=== PATIENT | female | born 1960 | race Caucasian/White ===

== ENCOUNTER → 2017-07-22 | Outpatient (CLI) | payer MEDICARE ==
[2016-07-21 14:29] VITALS: BMI 43.2
[~2017-07-22] MED LIST: ACE500 PO; ALB17R INH; ALB6.7R INH; ALBU8HFA INH; ASPI-1064 PO; AUG500 PO; AZI250 PO; AZIT-1 PO; AZIT500T47 PO; AZM25R INH; BACDS PO; BECR40 INH; BETA15CR37 TP; BUDE10.2 INH; BUPR-129 PO; CEFU250T11 PO; CEFU500T10 PO; CEP500 PO; CEPH500C24 PO; CEPH500T7 PO; CHLO1CAP45 PO; CIP500 PO; CITA-156 PO; CITA-157 PO; CPAP AT NIGHT; CYCL10TA29 PO; D ME PO; DIPH-740 PO; DOXY-179 PO; DUONEB INH; DUONEB NEB; FLUT1DIS27 IH; FLUT1DIS28 IH; GUAI237S60 PO; HYDR-3087 PO; HYDR-385 PO; IBU600 PO; IBU800 PO; IBUP600T22 PO; IBUP800T37 PO; IPRA3AMP36 IH; KET10 PO; LEV25 PO; LEVO100T95 PO; LOR5 PO; LOR5/325 PO; MONT10TA PO; NAP550 PO; NAPR-1043 PO; NAPR220C12 PO; OMEP-153 PO; ONDA-2 PO; OXYC-373 PO; OXYC-865 PO; OXYC5TAB38 PO; OXYGEN INH; OXYGENHOME INH; PANT40TA65 PO; PER PO; PHEN120S16 PO; PRAV20TA65 PO; PRE20 PO; PRED-1 PO; PRED20TA6 PO; PRIM50TA PO; PROP10TA58 PO; PROTONIX; SIMV-49 PO; TIO18R INH; TRAM-420 PO; ZPACK; [UNRECOGNIZED DRUG - CODE] PO
[2017-07-22 14:03] LABS: LDL CHOLESTEROL 68 mg/dl
== END ==
LOC: LAB 13:32
PROVIDERS: ATTEND Family Medicine
DX: E78.00 Pure hypercholesterolemia, unspecified (principal); E03.9 Hypothyroidism, unspecified
CPT/HCPCS: 36415; 82040; 82247; 82310; 82374; 82435; 82465; 82565; 82947; 83718; 84075; 84132; 84155; 84295; 84443; 84450; 84460; 84478; 84520

== ENCOUNTER 2017-08-14 20:10 | Emergency (ER) | payer MEDICARE, MEDICAID ==
[2016-07-21 14:29] VITALS: Ht 157.5 cm; Wt 110.2 kg
[~2017-08-14] VITALS: Ht 157.5 cm; Wt 110.2 kg
--- NOTE | 2017-08-14 20:15 | ER Report ---
History and Physical Time Seen By MD: 20:15 HPI/ROS CHIEF COMPLAINT: Difficulty breathing HISTORY OF PRESENT ILLNESS: 56-year-old female with a history of O2 dependent COPD on 2-5 L, who continues to smoke. Presents ambulatory to the ER complaining of cough and increasing shortness of breath for 10 days. She notes productive cough of yellow sputum. She notes some low-grade fevers. She describes body aches. She denies exposure to ill contacts. She states she's completely recovered from her visit in early May of last year where she was treated with Zithromax and prednisone. She notes no leg swelling or calf pain. She denies chest pain. Patient states her nebulizer treatments are not helping. REVIEW OF SYSTEMS: Respiratory: As above Cardiovascular: No chest pain, no palpitations. Gastrointestinal: No vomiting, no abdominal pain. Musculoskeletal: As above Allergies: Coded Allergies: fluoxetine (Unverified Allergy, Intermediate, HIVES, 08/14/17) acetaminophen (Verified Allergy, Mild, NAUSEA/VOMITING, 08/14/17) codeine (Verified Allergy, Mild, NAUSEA/VOMITING, 08/14/17) shellfish derived (Unverified Allergy, Unknown, 08/14/17) Home Meds Active Scripts Prednisone (PREDNISONE) 20 Mg Tablet, 40 MG PO QDAY, #12 2 by mouth daily 4 days then 1 by mouth daily 4 days Prov:FROYLANVICTOR MANUEL Zuniga DO 08/14/17 Cefuroxime Axetil (CEFUROXIME) 500 Mg Tablet, 500 MG PO BID for infection, #14 TAB Prov:VICTOR MANUEL GALEANO DO 08/14/17 Oxygen (OXYGEN) Inha, 5 L INH QHS, #5 L With CPAP. Prov:ARIE HORTON MD 07/21/16 Reported Medications Lisinopril (LISINOPRIL) 40 Mg Tablet, 40 MG PO QDAY, TAB 08/14/17 Levothyroxine Sodium (SYNTHROID) 112 Mcg Tablet, 112 MCG PO QDAY, TAB 08/14/17 Fluticasone/Salmeterol (ADVAIR 250-50 DISKUS) 1 Each Disk.w.dev, 1 EACH IH 1-2XD 12/26/16 Montelukast Sodium (SINGULAIR) 10 Mg Tablet, 1 TAB PO QDAY, TAB 10/07/15 Tiotropium [place] (SPIRIVA) 18 Mcg/Cap Inh, 18 MCG INH QDAY Y for CONGESTION, INH 08/26/15 Citalopram Hydrobromide (CELEXA) 40 Mg Tablet, 40 MG PO QDAY, #5 TAB 0 Refills TAKE 1 TABLET BY MOUTH EVERY DAY 05/23/13 Simvastatin (SIMVASTATIN) 20 Mg Tablet, 40 MG PO HS, TAB 0 Refills 05/23/13 Pantoprazole Sodium (PANTOPRAZOLE SODIUM) 40 Mg Tablet.dr, 40 MG PO QDAY, TAB.SR 0 Refills 05/23/13 Albuterol/Ipratropium (Duoneb) 3 Ml Soln, 3 ML NEB BID, 0 Refills 05/26/12 Discontinued Reported Medications Cephalexin 500 Mg Tab (KEFLEX 500 MG TAB) 500 Mg Tablet, 500 MG PO Q6H, #12 TAB 03/01/17 Hydrocodone Bit/Acetaminophen (HYDROCODON-ACETAMINOPHEN 5-325) 1 Each Tablet, 1- 2 EACH PO Q4-6H Y for PAIN, #30 TAB 03/01/17 Levothyroxine Sodium (SYNTHROID) 100 Mcg Tablet, 100 MCG PO QDAY 02/08/16 Discontinued Scripts Azithromycin (ZITHROMAX) 250 Mg Tablet, 0 PO QDAY, #6 TAB Prov:KIMI EASLEY MD 06/01/17 Prednisone 10 Mg Tab (PREDNISONE 10 MG TAB) 10 Mg Tablet, 50 MG PO QDAY, #47 TAB 50 mg by mouth daily for 3 days then 40 mg by mouth daily for 3 days then 30 mg by mouth daily for 3 days then 20 mg by mouth daily for 3 days then 10 mg by mouth daily for 3 days then 5 mg by mouth daily for 3 days. Prov:KIMI EASLEY MD 06/01/17 Past Medical/Surgical History Parkinsons, migraines, "non-cardiac" angina, hypercholesterolemia, asthma, COPD , GERD, rotator cuff strain/tendonitis, "arthritis", "vision problems", " thyroid disorder", depression 2013 hysterectomy-uterine fibroids, 03/2012-EGD with dilation for dysphagia, 1983 bilateral salpingectomy, 01/2011 left and right ankle fracture, L4-L5 deterioration, 11/2012 subconjunctival hemorrhage, hx of pneumo, 2008 appendectomy, 2013 colonoscopy, 1983 tubal ligation Reviewed Nurses Notes: Yes Old Medical Records Reviewed: Yes Hx Smoking: Yes (SMOKES 1/2 TO 3/4 PPD FOR 44 YEARS. CHEWED TOBACCO FOR 1 YEAR) Smoking Status: Current: Every Day Smoker, Heavy Tobacco Smoker Exposure to Second Hand Smoke?: Yes Hx Substance Use Disorder: No Hx Alcohol Use: Yes Constitutional Vital Sign - Last 24 Hours 08/14/17 08/14/17 08/14/17 08/14/17 20:15 20:16 20:20 20:25 Temp 98.2 Pulse 97 ??? Resp 28 B/P (MAP) 136/87 131/88 (102) 134/73 (93) Pulse Ox 97 100 O2 Delivery Nasal Cannula 08/14/17 08/14/17 08/14/17 08/14/17 20:30 20:30 20:36 20:40 Pulse 74 91 77 Resp 16 18 B/P (MAP) 121/77 (92) Pulse Ox 96 96 O2 Delivery Nasal Cannula O2 Flow Rate 2.0 08/14/17 08/14/17 08/14/17 08/14/17 20:55 20:56 21:00 21:10 Pulse ??? 75 B/P (MAP) 115/64 (81) 113/77 (89) Pulse Ox 94 08/14/17 08/14/17 21:20 21:25 Pulse 39 B/P (MAP) 121/79 (93) Pulse Ox 96 Physical Exam Vital signs stable, mild elevation of the respirator rate 28. Pulse ox normal at her baseline 2 L General Appearance: The patient is alert, has no immediate need for airway protection and no current signs of toxicity. Slightly pale appearing, skin warm and dry HEENT: Pupils equal and round no injection. TMs normal, oropharynx with mild erythema, no exudate or petechiae Respiratory: Chest is non tender, diffuse expiratory wheezing, no Rales or rhonchi noted Cardiac: regular rate and rhythm Gastrointestinal: Abdomen is soft and non tender, no masses, bowel sounds normal. Musculoskeletal: Neck: Neck is supple and non tender. Extremities have full range of motion and are non tender. No edema, no calf tenderness Skin: No rashes or lesions. DIFFERENTIAL DIAGNOSIS: After history and physical exam differential diagnosis was considered for shortness of breath including but not limited to pulmonary infectious process, COPD, asthma, pulmonary embolus and congestive heart failure. Medical Decision Making Data Points Laboratory Hematology Test 08/14/17 20:22 Influenza Virus Type A (PCR) Negative (NEGATIVE) Influenza Virus Type B (PCR) Negative (NEGATIVE) Chemistry Test 08/14/17 20:22 Influenza Virus Type A (PCR) Negative (NEGATIVE) Influenza Virus Type B (PCR) Negative (NEGATIVE) EKG/Imaging Imaging X-ray: Chest x-ray, 2 views was obtained. I viewed the images myself on the PACS system. My interpretation of the images is: Infiltrate, no effusion, normal mediastinum., Comparison to previous chest x-ray dated 06/01/17, no significant change. The radiologist interpretation had no clinically significant variation from this interpretation. X-ray: Right hand, 3 views was obtained. I viewed the images myself on the PACS system. My interpretation of the images is: No fracture no dislocation or malalignment, there is a healed appearance to suggest previous fracture of the midshaft of the 5th metacarpal. The radiologist interpretation had no clinically significant variation from this interpretation. ED Course/Re-evaluation ED Course Patient was admitted to an examination room. H&P was done. The differential diagnoses was considered. On clinical examination. Patient has a COPD exacerbation. She's had a cough and shortness of breath for 10 days. Is become much worse over the last 2. She notes production of yellow sputum. She is afebrile on arrival. Her pulse ox is normal. Her baseline O2. Her other vital signs are unremarkable except for mild tachypnea. She is treated with prednisone 40 mg by mouth, DuoNeb 2. A rapid influenza is sent off which is negative. Patient be treated with Ceftin antibiotic and a prednisone taper. She is advised to continue on all of her regular medications and follow-up with primary care if unimproved in 3-5 days. Decision to Disposition Date: Aug 14, 2017 Decision to Disposition Time: 20:31 Depart Departure Latest Vital Signs Vital Signs Date Time Temp Pulse Resp B/P (MAP) Pulse Ox O2 Delivery O2 Flow Rate FiO2 08/14/17 21:25 39 96 08/14/17 21:20 121/79 (93) 08/14/17 20:36 18 08/14/17 20:30 Nasal Cannula 2.0 08/14/17 20:15 98.2 Impression: Primary Impression: COPD with exacerbation Additional Impression: Acute bronchitis Condition: Improved Disposition: HOME OR SELF-CARE Referrals: BROOK TEJEDA DO (PCP) New Scripts Prednisone (PREDNISONE) 20 Mg Tablet 40 MG PO QDAY, #12 2 by mouth daily 4 days then 1 by mouth daily 4 days Prov: VICTOR MANUEL GALEANO DO 08/14/17 Cefuroxime Axetil (CEFUROXIME) 500 Mg Tablet 500 MG PO BID for infection, #14 TAB Prov: VICTOR MANUEL GALEANO DO 08/14/17 Patient Instructions: Acute Bronchitis (ED), COPD (Chronic Obstructive Pulmonary Disease) (ED) Problem Qualifiers Additional Impression: Acute bronchitis Bronchitis organism: unspecified organism Qualified Codes: J20.9 - Acute bronchitis, unspecified VICTOR MANUEL GALEANO DO Aug 14, 2017 20:15
[2017-08-14] MEDS ORDERED: LISI-374 PO (20:21)
[2017-08-14] MEDS ORDERED: LEVO112T44 PO (20:21)
[2017-08-14] MEDS ORDERED: predniSONE 20 MG TAB PO ONE (20:25)
[2017-08-14] MEDS ORDERED: ALBUTEROL/IPRATROPIUM 3 ML NEB NEB ONE (20:25)
[2017-08-14] MEDS ORDERED: PRED20TA6 PO (20:33)
[2017-08-14] MEDS ORDERED: CEFU500T10 PO (20:33)
[2017-08-14] MEDS ORDERED: CEFDINIR 300 MG CAP PO ONE (21:15)
[2017-08-14 21:20] VITALS: BP 121/79
--- NOTE | 2017-08-14 21:23 | RADIOLOGY IMAGING REPORT ---
FACILITY: [facility] PATIENT NAME: Jesús Major : 1960 MR: [id number] V: [id number] EXAM DATE: ORDERING PHYSICIAN: VICTOR MANUEL GALEANO TECHNOLOGIST: Location: [facility] - [place] Patient: Jesús Major : 1960 Visit/Account:[id number] Date of Sevice: 08/14/2017 EXAMINATION: Chest radiographs 2 views HISTORY: COPD, difficulty breathing. COMPARISON: 06/01/2017 FINDINGS: PA and lateral views of the chest are submitted. Lines/tubes: Postsurgical changes in the left upper lobe with surgical clips and several irene. Lungs/pleura: No focal consolidation or pleural effusion. Pulmonary vascularity is within normal martinez its. No evidence of pneumothorax. Heart: Negative. Mediastinum: Negative. Bony structures/body wall: Multilevel facet hypertrophy in the cervical spine. IMPRESSION: No radiographic evidence of acute cardiopulmonary disease. Report Dictated By: Daniel Garrison MD at 08/14/2017 9:15 PM Report E-Signed By: Daniel Garrison MD at 08/14/2017 9:18 PM WSN:[id number]
--- NOTE | 2017-08-14 21:26 | RADIOLOGY IMAGING REPORT ---
FACILITY: [facility] - [place] PATIENT NAME: Jesús Major : 1960 MR: [id number] V: [id number] EXAM DATE: ORDERING PHYSICIAN: VICTOR MANUEL GALEANO TECHNOLOGIST: [place] [facility] [place]: Jesús Major : 1960 Visit/Account:[id number] Date of Sevice: 08/14/2017 EXAMINATION: Right hand radiographs 3 views HISTORY: Right medial hand pain. COMPARISON: None. FINDINGS: PA, lateral and oblique views of the right hand are obtained. Bones: No acute fracture. Joint spaces: No dislocation. Dorsal osteophyte at the third DIP joint. Hardware: None. Alignment: Normal. Soft tissues: Negative. IMPRESSION: No acute right hand fracture. Report Dictated By: Daniel Garrison MD at 08/14/2017 9:18 PM Report E-Signed By: Daniel Garrison MD at 08/14/2017 9:22 PM WSN:[id number]
== END 2017-08-14 21:36 | disposition home or self-care (01) ==
LOC: ER 20:24
DX: J44.1 Chronic obstructive pulmonary disease with (acute) exacerbation (principal); J20.9 Acute bronchitis, unspecified; F17.210 Nicotine dependence, cigarettes, uncomplicated
CPT/HCPCS: 71046; 73130; 87502; 94640; 99283; A9270; J7512; J7620

== ENCOUNTER 2017-09-04 00:27 | Inpatient (IN) | payer MEDICARE, MEDICAID ==
[2016-07-21 14:29] VITALS: Ht 157.5 cm; Wt 110.7 kg
[~2017-09-04] VITALS: Ht 157.5 cm; Wt 110.7 kg
[2017-09-04] VITALS (15 sets, daily range): BP systolic 116–149; BP diastolic 75–108
[~2017-09-04 00:27] MED LIST changes: +LEVO112T44 PO; +LISI-374 PO; +LOSA100T67 PO; +RANI-320 PO
[2017-09-04] MEDS ORDERED: PROPOFOL EMUL(*) 10MG/ML 20 ML 40 ML ONE (07:53)
[2017-09-04] MEDS: NORMOSOL R SOLN(*) 1000 ML BAG 1,000 ML IV PRN ×2 (08:08→11:25)
[2017-09-04] MEDS ORDERED: LIDOCAINE/SOD BICARB 8.4% SYR ID ONE (08:45)
[2017-09-04] MEDS ORDERED: MIDAZOLAM 2 MG/2 ML VIAL IVP ONE (08:45)
[2017-09-04] MEDS ORDERED: GLYCOPYRROLATE 0.2 MG/ML SDV ONE (11:02)
[2017-09-04] MEDS ORDERED: SUCCINYLCHOL CHL 200MG/10ML VL ONE (11:05)
[2017-09-04] MEDS ORDERED: ALBUTEROL/IPRATROPIUM 3 ML NEB ONE ×2 (11:19→15:59)
--- NOTE | 2017-09-04 11:53 | Miscellaneous Provider Note ---
Miscellaneous Provider Note Note During the endoscopy, the patient became hypoxic and so the scope was removed and attempts at ventilating her with a BVM were not successful at improving her oxygenation. She became bradycardic and then went into asystole (confirmed with no pulse) and so chest compressions were initiated and she was rapidly intubated by Dr. Durand. She quickly resumed a regular, perfusing cardiac rhythm and chest compressions were only required for about 15 seconds before a perfusing rhythm was reinitiated. We then waited for her to wake up and then after she was awake, her SaO2 was 97%, she was moving air without problems, her ETCO2 was in the 50s, and her HR was NSR in the 90s with a SBP of 128. She was then extubated and moved to the PACU in stable condition. Hospitalist contacted , she will be admitted to the ICU for observation and telemetry. CULLEN LESLIE MD Sep 04, 2017 11:53
[2017-09-04] MEDS ORDERED: DEXAMETHASONE SOD PHOS 10MG/ML ONE (12:10)
[2017-09-04] MEDS ORDERED: NORMOSOL R SOLN(*) 1000 ML BAG 1,000 ML IV PRN (14:15)
--- NOTE | 2017-09-04 14:31 | EKG ---
FACILITY: [facility] PATIENT NAME: LUIS CARLOS YAÑEZ : [id number] MR: [id number] V: [id number] EXAM DATE: ORDERING PHYSICIAN: JACQUIE HORTON TECHNOLOGIST: SHERI Love Reason : POST ARREST Blood Pressure : / mmHG Vent. Rate : 074 BPM Atrial Rate : 074 BPM P-R Int : 204 ms QRS Dur : 080 ms QT Int : 388 ms P-R-T Axes : 052 048 073 degrees QTc Int : 430 ms Sinus rhythm Possible left atrial enlargement Poor R wave progression anteriorly Nonspecific ST findings inferolateral leads Confirmed by JACQUIE HORTON ([id number]) on 09/05/2017 5:44:02 AM Referred By: SOL Confirmed By:JACQUIE HORTON
[2017-09-04 14:43] LABS: PLATELET COUNT, AUTOMATED 143 K/uL (150-450)
--- NOTE | 2017-09-04 14:54 | History & Physical ---
History of Present Illness Chief Complaint Arrest during endoscopy History of Present Illness 53yo female with PMHx significant for COPD, VAISHNAVI, depression, hypothyroidism. She was having EGD with Dr. Leslie earlier today for dysphagia/esophageal dilation when she was noted to having a coughing episode followed by worsening hypoxia. Dr. Durand noted he was unable to adequately ventilate her and her hypoxia worsened to the point she needed intubation. During this time she was noted to become bradycardic and eventually asystole. A Code Blue was called. She had a few chest compressions and was successfully intubated. Her rhythm returned/stabilized and she was oxygenating easily. She has been stable with respect to her cardiorespiratory status since. Prior to this episode, she reports she has tolerated anesthesia and procedures very well. She denies any problems with chest pain. She does admit to significant dyspnea on exertion. She has no known cardiac disease. She was recommended for admission. History Problems: (1) COPD with asthma Status: Chronic (2) Spontaneous pneumothorax Status: Resolved (3) DDD (degenerative disc disease) Status: Chronic (4) Depression Status: Chronic (5) Hyperlipidemia Status: Chronic (6) Hypothyroidism Status: Chronic (7) VAISHNAVI on CPAP Status: Chronic (8) Tremor of unknown origin Status: Chronic (9) Steatosis of liver Status: Chronic (10) Dysphagia Status: Chronic (11) GERD (gastroesophageal reflux disease) Status: Chronic (12) Pneumonia Status: Resolved (13) Hx of appendectomy Status: Resolved (14) Hx of tubal ligation Status: Resolved (15) History of lung surgery Status: Resolved (16) Status post laparoscopic assisted vaginal hysterectomy Status: Resolved Home Meds Active Scripts Ranitidine Hcl (RANITIDINE HCL) 300 Mg Tablet, 1 TAB PO QHS, #60 TAB 6 Refills Prov:CULLEN LESLIE MD 08/19/17 Oxygen (OXYGEN) Inha, 5 L INH QHS, #5 L With CPAP. Prov:ARIE HORTON MD 07/21/16 Reported Medications Oxygen (OXYGEN) Inha, 2-4 L INH, L day time use 09/04/17 Propranolol Hcl (PROPRANOLOL HCL) 10 Mg Tablet, 10 MG PO TID 08/28/17 Losartan Potassium (LOSARTAN POTASSIUM) 100 Mg Tablet, 100 MG PO QDAY 08/28/17 Levothyroxine Sodium (SYNTHROID) 112 Mcg Tablet, 112 MCG PO QDAY, TAB 08/14/17 Fluticasone/Salmeterol (ADVAIR 250-50 DISKUS) 1 Each Disk.w.dev, 1 EACH IH 1-2XD 12/26/16 Montelukast Sodium (SINGULAIR) 10 Mg Tablet, 1 TAB PO QDAY, TAB 10/07/15 Citalopram Hydrobromide (CELEXA) 40 Mg Tablet, 40 MG PO QDAY, #5 TAB 0 Refills TAKE 1 TABLET BY MOUTH EVERY DAY 05/23/13 Simvastatin (SIMVASTATIN) 20 Mg Tablet, 40 MG PO HS, TAB 0 Refills 05/23/13 Pantoprazole Sodium (PANTOPRAZOLE SODIUM) 40 Mg Tablet.dr, 40 MG PO QDAY, TAB.SR 0 Refills 05/23/13 Albuterol/Ipratropium (Duoneb) 3 Ml Soln, 3 ML NEB BID, 0 Refills 05/26/12 Discontinued Reported Medications Lisinopril (LISINOPRIL) 40 Mg Tablet, 40 MG PO QDAY, TAB 08/14/17 Tiotropium [place] (SPIRIVA) 18 Mcg/Cap Inh, 18 MCG INH QDAY Y for CONGESTION, INH 08/26/15 Discontinued Scripts Prednisone (PREDNISONE) 20 Mg Tablet, 40 MG PO QDAY, #12 2 by mouth daily 4 days then 1 by mouth daily 4 days Prov:FROYLANVICTOR MANUEL Zuniga DO 08/14/17 Cefuroxime Axetil (CEFUROXIME) 500 Mg Tablet, 500 MG PO BID for infection, #14 TAB Prov:VICTOR MANUEL GALEANO Efrain DO 08/14/17 Allergies: Coded Allergies: fluoxetine (Unverified Allergy, Intermediate, HIVES, 08/14/17) acetaminophen (Verified Allergy, Mild, NAUSEA/VOMITING, 08/14/17) codeine (Verified Allergy, Mild, NAUSEA/VOMITING, 08/14/17) shellfish derived (Unverified Allergy, Unknown, 08/14/17) Patient History: FH: bladder cancer BROTHER OR SISTER (cancer ) FH: breast cancer BROTHER OR SISTER FH: diabetes mellitus MOTHER, FH: throat cancer BROTHER OR SISTER Hx Smoking: Yes (SMOKES 1/2 TO 3/4 PPD FOR 44 YEARS. CHEWED TOBACCO FOR 1 YEAR) Smoking Status: Current: Every Day Smoker, Heavy Tobacco Smoker Exposure to Second Hand Smoke?: Yes Caffeine Intake: Coffee, Tea, Soda Caffeine/Cups Per Day: 5 cans of soda daily, occassional coffee Hx Alcohol Use: Yes Hx Substance Use Disorder: No Social Drug Use: Never Review of Systems Constitutional: No Fever, No Chills, No Night Sweats Cardiovascular: No Chest Pain, No Palpitations, No Orthostatic Hypotension Respiratory: Shortness of Breath Gastrointestinal: No Nausea, No Vomiting, Dysphagia, No Hematemesis, No Hematochezia, No Melena Genitourinary: No Dysuria, No Hematuria Musculoskeletal: Pain Psychiatric: Depression Exam Vital Signs Vital Signs Date Time Temp Pulse Resp B/P (MAP) Pulse Ox O2 Delivery O2 Flow Rate FiO2 09/04/17 13:38 93 Nasal Cannula 3.0 09/04/17 13:30 77 21 116/93 (101) 09/04/17 13:00 98.3 General Appearance: Alert, Awake, No Acute Distress Neuro: No Gross deficits Eyes: PERRLA ENT: Oropharynx Clear, Other (several ecchymoses on tongue) Neck: No Masses, Other (short thick) Cardiovascular: Regular Rate and Rhythm (distant tones/no murmur) Respiratory: Other (decreased breath sounds bilaterally few expiratory wheezes/ no rales) Chest: No Tenderness GI: Abd Soft and Non-Tender : No CVA Tenderness Lymph: No Adenopathy Extremities: Warm, Perfused Integumentary: Skin Intact without Lesion / Mass Psych: Alert & Oriented X3 Medical Decision Making Data Points Result Diagram: 09/04/17 1432 09/04/17 1432 Item Value Date Time Albumin 3.8 g/dl 09/04/17 1432 Total Protein 6.1 gm/dl L 09/04/17 1432 Alkaline Phosphatase 68 U/L 09/04/17 1432 Alanine Aminotransferase (ALT/SGPT) 87 U/L H 09/04/17 1432 Aspartate Amino Transf (AST/SGOT) 73 U/L H 09/04/17 1432 Total Bilirubin 1.1 mg/dl 09/04/17 1432 Magnesium Level 1.7 mg/dl 09/04/17 1432 Calcium Level 8.7 mg/dl 09/04/17 1432 EKG / Imaging EKG Interpretation Sinus rhythm with poor R wave progression anteriorly Assessment and Plan Problems: (1) Cardiorespiratory arrest Status: Acute Assessment & Plan: It sounds as if she may have had a respiratory event, possibly laryngospasm which led to the arrest. At present, she does appear to be stable. Will admit to the ICU for further monitoring an devaluation. She certainly does have some risk factors for cardiac etiology as well. Will check serial troponins. Will further evaluate/treat pending results. (2) Asystole Status: Acute (3) COPD with asthma Status: Chronic Assessment & Plan: Will continue her usual regimen with Duoneb, Advair, Singulair, O2. (4) Depression Status: Chronic Assessment & Plan: Continue Celexa. (5) Hypothyroidism Status: Chronic Assessment & Plan: Continue L-thyroxine. (6) GERD (gastroesophageal reflux disease) Status: Chronic Assessment & Plan: Continue the Protonix, Zantac. (7) VAISHNAVI on CPAP Status: Chronic Assessment & Plan: Continue CPAP/O2. Venous Thromboembolism Antithrombotics Is Pt On Any Antithrombotics?: No (Resuscitation earlier today) Exam Sepsis Risk: No Definite Risk JACQUIE HORTON MD Sep 04, 2017 14:54
[2017-09-04] MEDS ORDERED: OXYGENHOME INH (14:58)
[2017-09-04] MEDS: ALBUTEROL/IPRATROPIUM 3 ML NEB NEB SCH (15:53)
[2017-09-04] MEDS: SALMETEROL/FLUTIC 250/50 1 INH INH SCH (15:53)
[2017-09-04] MEDS ORDERED: SIMVASTATIN 20 MG TAB PO SCH (21:00)
[2017-09-04] MEDS ORDERED: RANITIDINE HCL 150 MG TAB PO SCH (21:00)
[2017-09-04] MEDS: PROPRANOLOL HCL 20 MG TAB PO SCH (21:34)
[2017-09-05 01:00] VITALS: BP 134/81
[2017-09-05 02:00] VITALS: BP 149/113
[2017-09-05 04:00] VITALS: BP 146/86
[2017-09-05 05:00] VITALS: BP 143/93
[2017-09-05] MEDS: ALBUTEROL/IPRATROPIUM 3 ML NEB NEB SCH (05:41)
[2017-09-05] MEDS: SALMETEROL/FLUTIC 250/50 1 INH INH SCH (05:41)
[2017-09-05 05:47] LABS: PLATELET COUNT, AUTOMATED 137 K/uL (150-450)
[2017-09-05] MEDS ORDERED: LEVOTHYROXINE SOD 0.112 MG TAB PO SCH (06:00)
--- NOTE | 2017-09-05 07:35 | General Surgery Progress Note ---
Subjective Progress Notes Subjective No complaints this morning. No chest pain or SOB. Physical Exam Vital Signs Date Time Temp Pulse Resp B/P (MAP) Pulse Ox O2 Delivery O2 Flow Rate FiO2 09/05/17 06:00 97.8 82 15 96 Nasal Cannula 3.0 General Appearance: Alert, Awake, No Acute Distress, Afebrile GI: Soft and Non-Tender Extremities: Warm, Perfused Result Diagram: 09/05/17 0525 09/05/1725 Assessment and Plan Problems: (1) Cardiorespiratory arrest Status: Acute Assessment & Plan: 09/05/17: Doing well. No issues. No arrhythmias. Toponin remained completely normal. OK to d/c to home today from my standpoint. I have counseled Jesús that I recommend that she avoid endoscopy in the future but if ABSOLUTELY necessary then we would complete this with general endotracheal anesthesia. She seems to understand and seems to be agreeable with this recommendation. Condition Stable. Time Spent: < 30 min Exam Sepsis Risk: No Definite Risk CULLEN LESLIE MD Sep 05, 2017 07:35
--- NOTE | 2017-09-05 08:11 | Hospitalist Depart ---
Discharge Summary Reason for Hosp/Final Diag: (1) Cardiorespiratory arrest Status: Acute Hospital Course & Plan: Based on the history provided by Dr. Leslie, it sounds as if she may have had a respiratory event, possibly laryngospasm which led to the arrest. She recovered fairly quickly following intubation and mechanical ventilation. She remained stable in PACU and was admitted to the ICU for further monitoring and evaluation. She does have some risk factors for cardiac etiology as well. We did check serial troponins, all of which were normal. Her monitoring was normal as well. No dysrhythmias were seen. She had no recurrent problems. She was felt to be stable and ready for discharge. She will follow up with Dr. Celestin. (2) COPD with asthma Status: Chronic Hospital Course & Plan: Will continue her usual regimen with Duoneb, Advair, Singulair, O2. (3) Depression Status: Chronic Hospital Course & Plan: Continue Celexa. (4) Hypothyroidism Status: Chronic Hospital Course & Plan: Continue L-thyroxine. (5) GERD (gastroesophageal reflux disease) Status: Chronic Hospital Course & Plan: Continue the Protonix, Zantac. (6) VAISHNAVI on CPAP Status: Chronic Hospital Course & Plan: Continue CPAP/O2. Departure Weight (Pounds): 244 Weight (Ounces): 5.0 Result Diagram: 09/05/1752409/05/17524 Item Value Date Time White Blood Count 12.2 k/uL H 09/04/17 1432 Hemoglobin 15.4 g/dL 09/04/17 1432 Hematocrit 45.8 % 09/04/17 1432 Platelet Count 143 K/uL L 09/04/17 1432 Sodium Level 140 mmol/L 09/04/17 1432 Potassium Level 4.6 mmol/L 09/04/17 1432 Chloride Level 103 mmol/L 09/04/17 1432 Carbon Dioxide Level 25 mmol/L 09/04/17 1432 Blood Urea Nitrogen 12 mg/dl 09/04/17 1432 Creatinine 0.70 mg/dl 09/04/17 1432 Glomerular Filtration Rate Calc > 60.0 09/04/17 1432 Random Glucose 89 mg/dl 09/04/17 1432 Calcium Level 8.7 mg/dl 09/04/17 1432 Magnesium Level 1.7 mg/dl 09/04/17 1432 Total Bilirubin 1.1 mg/dl 09/04/17 1432 Aspartate Amino Transf (AST/SGOT) 73 U/L H 09/04/17 1432 Alanine Aminotransferase (ALT/SGPT) 87 U/L H 09/04/17 1432 Alkaline Phosphatase 68 U/L 09/04/17 1432 Troponin I < 0.012 ng/ml 09/04/17 1432 Total Protein 6.1 gm/dl L 09/04/17 1432 Albumin 3.8 g/dl 09/04/17 1432 Troponin I < 0.012 ng/ml 09/04/17 2111 Troponin I < 0.012 ng/ml 09/05/17 0525 EKG PATIENT NAME: LUIS CARLOS YAÑEZ : [id number] MR: [id number] V: [id number] EXAM DATE: ORDERING PHYSICIAN: JACQUIE HORTON TECHNOLOGIST: SHERI Test Reason : POST ARREST Blood Pressure : / mmHG Vent. Rate : 074 BPM Atrial Rate : 074 BPM P-R Int : 204 ms QRS Dur : 080 ms QT Int : 388 ms P-R-T Axes : 052 048 073 degrees QTc Int : 430 ms Sinus rhythm Possible left atrial enlargement Poor R wave progression anteriorly Nonspecific ST findings inferolateral leads Confirmed by JACQUIE HORTON ([id number]) on 09/05/2017 5:44:02 AM Referred By: SOL Confirmed By:JACQUIE HORTON Condition: Improved Discharge: Home, Self Care Time Spent: > 30 min Discharge Instructions Home Meds Active Scripts Ranitidine Hcl (RANITIDINE HCL) 300 Mg Tablet, 1 TAB PO QHS, #60 TAB 6 Refills Prov:CULLEN LESLIE MD 08/19/17 Oxygen (OXYGEN) Inha, 5 L INH QHS, #5 L With CPAP. Prov:ARIE HORTON MD 07/21/16 Reported Medications Oxygen (OXYGEN) Inha, 2-4 L INH, L day time use 09/04/17 Propranolol Hcl (PROPRANOLOL HCL) 10 Mg Tablet, 10 MG PO TID 08/28/17 Losartan Potassium (LOSARTAN POTASSIUM) 100 Mg Tablet, 100 MG PO QDAY 08/28/17 Levothyroxine Sodium (SYNTHROID) 112 Mcg Tablet, 112 MCG PO QDAY, TAB 08/14/17 Fluticasone/Salmeterol (ADVAIR 250-50 DISKUS) 1 Each Disk.w.dev, 1 EACH IH 1-2XD 12/26/16 Montelukast Sodium (SINGULAIR) 10 Mg Tablet, 1 TAB PO QDAY, TAB 10/07/15 Citalopram Hydrobromide (CELEXA) 40 Mg Tablet, 40 MG PO QDAY, #5 TAB 0 Refills TAKE 1 TABLET BY MOUTH EVERY DAY 05/23/13 Simvastatin (SIMVASTATIN) 20 Mg Tablet, 40 MG PO HS, TAB 0 Refills 05/23/13 Pantoprazole Sodium (PANTOPRAZOLE SODIUM) 40 Mg Tablet.dr, 40 MG PO QDAY, TAB.SR 0 Refills 05/23/13 Albuterol/Ipratropium (Duoneb) 3 Ml Soln, 3 ML NEB BID, 0 Refills 05/26/12 Follow up Referrals: Family Practice @ [facility] with Tray Celestin Do Diet: Low Cholesterol & Sat Fat Activity: As Tolerated, No Exertion Special Instructions: Continue home oxygen. Continue CPAP with oxygen. Follow up with Dr. Celestin in next 1-2 weeks or sooner if any problems. Copies to: TRAY CELESTIN DO; CULLEN LESLIE MD Venous Thromboembolism Antithrombotics Is Pt On Any Antithrombotics?: No (Resuscitation earlier today) JACQUIE HORTON MD Sep 05, 2017 08:11
[2017-09-05] MEDS ORDERED: CITALOPRAM HYDROBROM 20 MG TAB PO SCH (09:00)
[2017-09-05] MEDS ORDERED: LOSARTAN POTASSIUM 50 MG TAB PO SCH (09:00)
[2017-09-05] MEDS ORDERED: PANTOPRAZOLE SOD 40 MG TABEC PO SCH (09:00)
[2017-09-05] MEDS ORDERED: MONTELUKAST SODIUM 10 MG TAB PO SCH (09:00)
[2017-09-05] MEDS: PROPRANOLOL HCL 20 MG TAB PO SCH (09:29)
[2017-09-07] MEDS ORDERED: INFLUENZA VIRUS VAC 0.5 ML SYR IM ONLY ONE (09:00)
== END 2017-09-05 09:50 | disposition home or self-care (01) | DRG 155 ==
LOC: OR 00:27 → ICU 13:00
PROVIDERS: ADMIT Internal Medicine; ATTEND Surgery
PROC: 5A12012 Performance of Cardiac Output, Single, Manual (ICD-10-PCS; 2017-09-04)
PROC: 5A09357 Assistance with Respiratory Ventilation, Less than 24 Consecutive Hours, Continuous Positive Airway Pressure (ICD-10-PCS; 2017-09-04)
PROC: 0DJ08ZZ Inspection of Upper Intestinal Tract, Via Natural or Artificial Opening Endoscopic (ICD-10-PCS; principal; 2017-09-04 10:29)
DX: J38.5 Laryngeal spasm (principal); I97.711 Intraoperative cardiac arrest during other surgery; K21.9 Gastro-esophageal reflux disease without esophagitis; G47.33 Obstructive sleep apnea (adult) (pediatric); R09.02 Hypoxemia; J44.9 Chronic obstructive pulmonary disease, unspecified; F32.9 Major depressive disorder, single episode, unspecified; E03.9 Hypothyroidism, unspecified; E78.5 Hyperlipidemia, unspecified; F17.210 Nicotine dependence, cigarettes, uncomplicated; R13.10 Dysphagia, unspecified; K22.8 Other specified diseases of esophagus; R25.1 Tremor, unspecified; K76.0 Fatty (change of) liver, not elsewhere classified; Y65.8 Other specified misadventures during surgical and medical care; Y73.3 Surgical instruments, materials and gastroenterology and urology devices (including sutures) associated with adverse incidents; Y92.234 Operating room of hospital as the place of occurrence of the external cause; Z90.710 Acquired absence of both cervix and uterus; Z88.8 Allergy status to other drugs, medicaments and biological substances; Z91.013 Allergy to seafood; Z99.81 Dependence on supplemental oxygen
CPT/HCPCS: 36415; 82040; 82247; 82310; 82374; 82435; 82565; 82947; 83735; 84075; 84132; 84155; 84295; 84450; 84460; 84484; 84520; 85025; 93005; 94640; J0330; J1100; J2704; J3490

== ENCOUNTER → 2017-09-23 | Outpatient (CLI) | payer MEDICARE, MEDICAID ==
[2016-07-21 14:29] VITALS: BMI 43.2
[~2017-09-23] MED LIST changes: +GADOBENATE 529MG/1ML 15ML VIAL IVP ONE
--- NOTE | 2017-09-23 15:28 | RADIOLOGY IMAGING REPORT ---
FACILITY: [facility] - [place] PATIENT NAME: Jesús Major : 1960 MR: [id number] V: [id number] EXAM DATE: [id number] ORDERING PHYSICIAN: BROOK TEJEDA TECHNOLOGIST: Location: [facility] Patient: Jesús Major : 1960 Visit/Account:[id number] Date of Sevice: 09/23/2017 EXAMINATION: MRI Brain without intravenous contrast MRI Brain with intravenous contrast HISTORY: Altered mental status. Coded during anesthesia. COMPARISON: Noncontrast head CT dated 09/04/2010. TECHNIQUE: Multi-planar, multi-sequence brain MRI was performed before and after IV gadolinium. CONTRAST: 15 mL of IV MultiHance FINDINGS: Brain volume: Normal. Sagittal midline structures: Negative. Ventricles: Negative. Acute ischemic changes: None. Hemorrhage: None. Masses / edema: None. Enhancement: Negative. Elaine-white: Negative. White matter: Minimal patchy FLAIR hyperintensity in the frontal white matter. Vessels: Negative. Extra-axial: Negative. Calvarium / scalp: Negative. Skull base: Negative. Visualized sinuses / orbits: Leftward nasal septal deviation. Minimal mucosal thickening in the maxi llary sinuses. Visualized upper neck: Negative. IMPRESSION: 1. No acute intracranial abnormality or mass. 2. Minimal nonspecific chronic white matter changes in the the frontal white matter. The differential diagnosis includes migraine syndromes, demyelinating disease, sequela of prior infection/inflammatio n/trauma, and chronic microvascular ischemia. 3. Leftward nasal septal deviation. Minimal mucosal thickening in the maxillary sinuses. Report Dictated By: Milad Cox MD at 09/23/2017 3:12 PM Report E-Signed By: Milad Cox MD at 09/23/2017 3:23 PM WSN:[id number]
== END ==
LOC: MRI 09-19 03:00
PROVIDERS: ATTEND Family Medicine
DX: J34.2 Deviated nasal septum (principal); R90.82 White matter disease, unspecified
CPT/HCPCS: 70553; A9577

== ENCOUNTER → 2017-12-13 | Outpatient (CLI) | payer MEDICARE, MEDICAID ==
[2016-07-21 14:29] VITALS: BMI 43.2
[~2017-12-13] MED LIST changes: -GADOBENATE 529MG/1ML 15ML VIAL IVP ONE
--- NOTE | 2017-12-16 18:02 | RADIOLOGY IMAGING REPORT ---
[place]AC[place] [facility] [place] PATIENT NAME: LUIS CARLOS YAÑEZ : [id number] MR: [id number] V: [id number] EXAM DATE: [id number] ORDERING PHYSICIAN: CULLEN AVELAR TECHNOLOGIST: Judit Valenzuela PROCEDURE:BILATERAL DIGITAL SCREENING MAMMOGRAM WITH CAD ASSISTED INTERPRETATION & 3D TOMOSYNTHESIS COMPARISON:Prior mammograms 11/15/16, 12/24/14. INDICATIONS:SCREENING FINDINGS: A small amount of fibroglandular tissue is seen throughout the breasts. The parenchymal pattern has remained stable allowing for difference in mammographic technique & patient positioning. There is no evidence of malignant appearing mass, malignant appearing calcifications or other secondary sign of malignancy in either breast. DIAGNOSTIC CATEGORY 1--NEGATIVE. RECOMMENDATIONS: ROUTINE MAMMOGRAM AND CLINICAL EVALUATION. IMPRESSION: BIRADS 1: Negative. No significant abnormality is seen. Dictated by: Sujata Pizano M.D. on 12/16/2017 at 11:17 Transcribed by: MIGUEL on 12/16/2017 at 13:35 Approved by: Sujata Pizano M.D. on 12/16/2017 at 18:01 [facility]
== END ==
LOC: MAMO 14:53
PROVIDERS: ATTEND Obstetrics & Gynecology
DX: Z12.31 Encounter for screening mammogram for malignant neoplasm of breast (principal)
CPT/HCPCS: 77063; 77067

== ENCOUNTER 2018-01-05 19:33 | Emergency (ER) | payer MEDICARE, MEDICAID ==
[2016-07-21 14:29] VITALS: Wt 113.4 kg
[2018-01-05] MEDS ORDERED: DEXAMETHASONE SOD PHOS 10MG/ML IVP ONE (19:55)
[2018-01-05] MEDS ORDERED: ALBUTEROL/IPRATROPIUM 3 ML NEB NEB ONE (19:55)
[2018-01-05 20:16] LABS: PLATELET COUNT, AUTOMATED 144 K/uL (150-450)
--- NOTE | 2018-01-05 20:54 | ER Report ---
History and Physical Time Seen By MD: 19:35 Hx. of Stated Complaint: Pt is reporting shortness of breath (no CP) and congestion since the december. No NV but diarrhea, no fever. Breathing tx at home have not been of help. HPI/ROS CHIEF COMPLAINT: Cough and shortness of breath HISTORY OF PRESENT ILLNESS: Patient is a 49-year-old female who presents to ED with complaint of cough and congestion for the past 3 days. She has noted some shortness of breath as well. Patient has a history of severe COPD and is currently on oxygen. She states that she normally wears 4 L oxygen during day and 5 L at night. She states that her significant other has been ill with a sinus infection and believes she caught this from him. She denies any fever. She states that she has been taking her DuoNeb four times a day with some mild relief. She denies any sore throat. She has not noted any chest pain, nausea, vomiting, abdominal pain. REVIEW OF SYSTEMS: Constitutional: No fever, no chills. Eyes: No discharge. ENT: No sore throat. Cardiovascular: See history of present illness. No palpitations. Respiratory: See history of present illness. Gastrointestinal: No abdominal pain, no vomiting. Genitourinary: No hematuria. Musculoskeletal: No back pain. Skin: No rashes. Neurological: No headache. Allergies: Coded Allergies: fluoxetine (Unverified Allergy, Intermediate, HIVES, 08/14/17) acetaminophen (Verified Allergy, Mild, NAUSEA/VOMITING, 08/14/17) codeine (Verified Allergy, Mild, NAUSEA/VOMITING, 08/14/17) shellfish derived (Unverified Allergy, Unknown, 08/14/17) Home Meds Active Scripts Promethazine HCl/Codeine (Prometh-Codein 6.25-10 mg/5 ml) 5 Ml Syrup, 1 TSP PO QHS Y for COUGH, #120 ML Prov:YRN LAWRENCE PA-C 01/05/18 Prednisone (PREDNISONE) 20 Mg Tablet, 20 MG PO BID, #10 TAB Prov:YRN LAWRENCE PA-C 01/05/18 Azithromycin 250 Mg Tab (AZITHROMYCIN 250 MG TAB) 250 Mg Tablet, 1 TAB PO QDAY, #6 TAB Take 2 tabs today and then 1 tab a day until gone. Prov:YRN LAWRENCE PA-C 01/05/18 Levothyroxine Sodium (SYNTHROID) 112 Mcg Tablet, 1 TAB PO QDAY, #60 TAB 3 Refills Prov:CULLEN LESLIE MD 12/31/17 Ranitidine Hcl (RANITIDINE HCL) 300 Mg Tablet, 1 TAB PO QHS, #60 TAB 6 Refills Prov:CULLEN LESLIE MD 08/19/17 Oxygen (OXYGEN) Inha, 5 L INH QHS, #5 L With CPAP. Prov:ARIE HORTON MD 07/21/16 Reported Medications Oxygen (OXYGEN) Inha, 2-4 L INH, L day time use 09/04/17 Propranolol Hcl (PROPRANOLOL HCL) 10 Mg Tablet, 10 MG PO TID 08/28/17 Losartan Potassium (LOSARTAN POTASSIUM) 100 Mg Tablet, 100 MG PO QDAY 08/28/17 Fluticasone/Salmeterol (ADVAIR 250-50 DISKUS) 1 Each Disk.w.dev, 1 EACH IH 1-2XD 12/26/16 Citalopram Hydrobromide (CELEXA) 40 Mg Tablet, 40 MG PO QDAY, #5 TAB 0 Refills TAKE 1 TABLET BY MOUTH EVERY DAY 05/23/13 Simvastatin (SIMVASTATIN) 20 Mg Tablet, 40 MG PO HS, TAB 0 Refills 05/23/13 Pantoprazole Sodium (PANTOPRAZOLE SODIUM) 40 Mg Tablet.dr, 40 MG PO QDAY, TAB.SR 0 Refills 05/23/13 Albuterol/Ipratropium (Duoneb) 3 Ml Soln, 3 ML NEB BID, 0 Refills 05/26/12 Discontinued Reported Medications Montelukast Sodium (SINGULAIR) 10 Mg Tablet, 1 TAB PO QDAY, TAB 10/07/15 Reviewed Nurses Notes: Yes Old Medical Records Reviewed: Yes Hx Smoking: Yes (SMOKES 1/2 TO 3/4 PPD FOR 44 YEARS. CHEWED TOBACCO FOR 1 YEAR) Smoking Status: Current: Every Day Smoker, Heavy Tobacco Smoker Exposure to Second Hand Smoke?: Yes Hx Substance Use Disorder: No Hx Alcohol Use: Yes Constitutional Vital Sign - Last 24 Hours 01/05/18 01/05/18 01/05/18 01/05/18 19:38 19:45 19:45 19:45 Temp 98.2 Pulse 82 Resp 19 B/P (MAP) 150/84 (106) 146/86 (106) 146/86 Pulse Ox 95 O2 Delivery Room Air O2 Flow Rate 3.0 01/05/18 01/05/18 01/05/18 01/05/18 19:48 20:00 20:03 20:03 Pulse 84 83 Resp 22 22 B/P (MAP) 153/92 (112) Pulse Ox 95 95 99 O2 Delivery Nasal Cannula O2 Flow Rate 2.5 01/05/18 01/05/18 01/05/18 01/05/18 20:03 20:07 20:15 20:30 Pulse 86 82 Resp 20 20 B/P (MAP) 144/86 (105) 142/82 (102) 01/05/18 01/05/18 01/05/18 20:45 20:50 21:00 Pulse 84 Resp 14 B/P (MAP) 143/81 (101) 145/89 (107) Pulse Ox 93 Physical Exam General Appearance: The patient is alert, has no immediate need for airway protection and no signs of toxicity. She appears to be in no acute distress. Eyes: Pupils equal and round no pallor or injection. ENT, Mouth: Mucous membranes are moist. Respiratory: There is bilateral wheezing present. No retractions.. Cardiovascular: Regular rate and rhythm, no murmurs appreciated. Gastrointestinal: Abdomen is soft and non tender, no masses, bowel sounds normal.] Skin: Warm and dry, no rashes. Musculoskeletal: Neck is supple non tender. Extremities are nontender, nonswollen and have full range of motion. DIFFERENTIAL DIAGNOSIS: After history and physical exam differential diagnosis was considered for shortness of breath including but not limited to pulmonary infectious process, COPD, asthma, pulmonary embolus and congestive heart failure. Medical Decision Making Data Points Result Diagram: 01/05/18200401/05/182004 Laboratory Hematology Test 01/05/18 20:05 Red Blood Count 4.71 M/uL (4.17-5.56) Mean Corpuscular Volume 88.3 fL (80.0-96.0) Mean Corpuscular Hemoglobin 30.4 pg (26.0-33.0) Mean Corpuscular Hemoglobin Concent 34.5 g/dL (32.0-36.0) Red Cell Distribution Width 13.2 % (11.5-14.5) Mean Platelet Volume 8.6 fL (7.2-11.1) Neutrophils (%) (Auto) 74.3 % (39.4-72.5) Lymphocytes (%) (Auto) 12.4 % (17.6-49.6) Monocytes (%) (Auto) 12.5 % (4.1-12.4) Eosinophils (%) (Auto) 0.3 % (0.4-6.7) Basophils (%) (Auto) 0.5 % (0.3-1.4) Nucleated RBC Relative Count (auto) 0.0 /100WBC Neutrophils # (Auto) 6.4 K/uL (2.0-7.4) Lymphocytes # (Auto) 1.1 K/uL (1.3-3.6) Monocytes # (Auto) 1.1 K/uL (0.3-1.0) Eosinophils # (Auto) 0.0 K/uL (0.0-0.5) Basophils # (Auto) 0.0 K/uL (0.0-0.1) Nucleated RBC Absolute Count (auto) 0.00 K/uL Sodium Level 137 mmol/L (137-145) Potassium Level 4.4 mmol/L (3.5-5.0) Chloride Level 100 mmol/L (98-107) Carbon Dioxide Level 27 mmol/L (22-31) Blood Urea Nitrogen 9 mg/dl (7-18) Creatinine 0.80 mg/dl (0.52-1.04) Glomerular Filtration Rate Calc > 60.0 Random Glucose 98 mg/dl (75-110) Calcium Level 8.8 mg/dl (8.4-10.2) Total Bilirubin 1.3 mg/dl (0.2-1.3) Aspartate Amino Transf (AST/SGOT) 29 U/L (0-35) Alanine Aminotransferase (ALT/SGPT) 37 U/L (0-56) Alkaline Phosphatase 100 U/L (0-126) Total Protein 6.9 g/dl (6.3-8.2) Albumin 4.0 g/dl (3.5-5.0) Chemistry Test 01/05/18 20:05 White Blood Count 8.6 k/uL (4.5-11.0) Red Blood Count 4.71 M/uL (4.17-5.56) Hemoglobin 14.3 g/dL (12.0-16.0) Hematocrit 41.6 % (34.0-47.0) Mean Corpuscular Volume 88.3 fL (80.0-96.0) Mean Corpuscular Hemoglobin 30.4 pg (26.0-33.0) Mean Corpuscular Hemoglobin Concent 34.5 g/dL (32.0-36.0) Red Cell Distribution Width 13.2 % (11.5-14.5) Platelet Count 144 K/uL (150-450) Mean Platelet Volume 8.6 fL (7.2-11.1) Neutrophils (%) (Auto) 74.3 % (39.4-72.5) Lymphocytes (%) (Auto) 12.4 % (17.6-49.6) Monocytes (%) (Auto) 12.5 % (4.1-12.4) Eosinophils (%) (Auto) 0.3 % (0.4-6.7) Basophils (%) (Auto) 0.5 % (0.3-1.4) Nucleated RBC Relative Count (auto) 0.0 /100WBC Neutrophils # (Auto) 6.4 K/uL (2.0-7.4) Lymphocytes # (Auto) 1.1 K/uL (1.3-3.6) Monocytes # (Auto) 1.1 K/uL (0.3-1.0) Eosinophils # (Auto) 0.0 K/uL (0.0-0.5) Basophils # (Auto) 0.0 K/uL (0.0-0.1) Nucleated RBC Absolute Count (auto) 0.00 K/uL Glomerular Filtration Rate Calc > 60.0 Calcium Level 8.8 mg/dl (8.4-10.2) Total Bilirubin 1.3 mg/dl (0.2-1.3) Aspartate Amino Transf (AST/SGOT) 29 U/L (0-35) Alanine Aminotransferase (ALT/SGPT) 37 U/L (0-56) Alkaline Phosphatase 100 U/L (0-126) Total Protein 6.9 g/dl (6.3-8.2) Albumin 4.0 g/dl (3.5-5.0) EKG/Imaging Imaging CXR: NO acute process ED Course/Re-evaluation ED Course Will obtain chest x-ray and labs. Patient given 10 mg IV dexamethasone as well as a DuoNeb treatment. 01/05/2018 8:59:32 pm - discussed imaging and labs with patient. There appears to be no leukocytosis and no evidence of infiltrate on her chest x-ray. She likely does have COPD exacerbation we'll place her on some prednisone as well as Zithromax for coverage of possible bacterial source. States that she is able to take codeine without any issue but cannot take Tylenol 3 due to nausea. Decision to Disposition Date: Jan 05, 2018 Decision to Disposition Time: 21:00 Depart Departure Latest Vital Signs Vital Signs Date Time Temp Pulse Resp B/P (MAP) Pulse Ox O2 Delivery O2 Flow Rate FiO2 01/05/18 21:00 145/89 (107) 01/05/18 20:50 84 14 93 01/05/18 20:03 Nasal Cannula 2.5 01/05/18 19:45 98.2 Impression: Primary Impression: COPD with exacerbation Condition: Improved Disposition: HOME OR SELF-CARE Referrals: BROOK TEJEDA DO (PCP) New Scripts Promethazine HCl/Codeine (Prometh-Codein 6.25-10 mg/5 ml) 5 Ml Syrup 1 TSP PO QHS Y for COUGH, #120 ML Prov: YRN LAWRENCE PA-C 01/05/18 Prednisone (PREDNISONE) 20 Mg Tablet 20 MG PO BID, #10 TAB Prov: YRN LAWRENCE PA-C 01/05/18 Azithromycin 250 Mg Tab (AZITHROMYCIN 250 MG TAB) 250 Mg Tablet 1 TAB PO QDAY, #6 TAB Take 2 tabs today and then 1 tab a day until gone. Prov: YRN LAWRENCE PA-C 01/05/18 Patient Instructions: COPD (Chronic Obstructive Pulmonary Disease) (ED) Additional Instructions: Stay well-hydrated. Follow-up with primary care provider in 2-3 days. If having any worsening or concerning symptoms may return to the emergency department. YRN LAWRENCE PA-C Jan 05, 2018 20:54
--- NOTE | 2018-01-05 20:58 | RADIOLOGY IMAGING REPORT ---
FACILITY: [facility] PATIENT NAME: Jesús Major : 1960 MR: [id number] V: [id number] EXAM DATE: ORDERING PHYSICIAN: YRN LAWRENCE TECHNOLOGIST: [place] [facility] [place] Jesús Major : 1960 Visit/Account:[id number] Date of Sevice: 01/05/2018 CHEST PA AND LAT HISTORY: Cough, shortness of breath, smoker. COMPARISON: 08/14/2017 and studies dating to 03/10/2006. TECHNIQUE: PA and lateral views of the chest. FINDINGS: Tubes/lines/hardware: There are surgical sutures and surgical clips in the posterior segment of the l eft upper lung, unchanged. Pulmonary: There is stable linear scarring or atelectasis at the lateral left mid lung. Right lung is clear. There is no pneumothorax or pleural effusion. Cardiomediastinal: The cardiac silhouette is at the upper limits of normal to mildly enlarged, unchan ged. The mediastinal silhouette is within normal limits. Bones/soft tissues: No acute osseous abnormality. The visible abdomen is normal. IMPRESSION: 1. Stable chest without acute process. Report Dictated By: Mey Caro at 01/05/2018 8:51 PM Report E-Signed By: Mey Caro at 01/05/2018 8:54 PM WSN:[id number]
[2018-01-05 21:00] VITALS: BP 145/89
[2018-01-05] MEDS ORDERED: AZIT-18 PO (21:01)
[2018-01-05] MEDS ORDERED: PROM5SYR PO (21:01)
[2018-01-05] MEDS ORDERED: PRED20TA6 PO (21:01)
== END 2018-01-05 21:12 | disposition home or self-care (01) ==
LOC: ER 19:46
DX: J44.1 Chronic obstructive pulmonary disease with (acute) exacerbation (principal)
CPT/HCPCS: 71046; 85025; 94640; 96374; 99283; J1100; J7620; 82040; 82247; 82310; 82374; 82435; 82565; 82947; 84075; 84132; 84155; 84295; 84450; 84460; 84520

== ENCOUNTER 2018-01-24 00:24 | Emergency (ER) | payer MEDICARE, MEDICAID ==
[2016-07-21 14:29] VITALS: Wt 113.5 kg
[~2018-01-24 00:24] MED LIST changes: +AZIT-18 PO; +PROM5SYR PO
--- NOTE | 2018-01-24 00:28 | ER Report ---
History and Physical Time Seen By MD: 00:28 HPI/ROS CHIEF COMPLAINT: Left lower molar pain HISTORY OF PRESENT ILLNESS: Patient is a 57-year-old female here with complaints of left lower molar pain which is been present for some time. She reports that the pain is worsened over the past several days in spite of taking [id number] medications for analgesia. Currently does not have dental insurance and reports that she is unable to get into a dentist for definitive treatment. She reports that the pain is unbearable at this point. Patient is afebrile, hemodynamically stable in no acute distress. She does report mild swelling of the left jaw subjectively. REVIEW OF SYSTEMS: Constitutional: No fever, no chills. Eyes: No discharge. ENT: + Left lower molar pain and jaw swelling Skin: No rashes. Neurological: No headache. Allergies: Coded Allergies: fluoxetine (Unverified Allergy, Intermediate, HIVES, 01/24/18) acetaminophen (Verified Allergy, Mild, NAUSEA/VOMITING, 01/24/18) codeine (Verified Allergy, Mild, NAUSEA/VOMITING, 01/24/18) shellfish derived (Unverified Allergy, Unknown, 01/24/18) Home Meds Active Scripts Penicillin V Potassium 500 Mg Tab (PENICILLIN V POTASSIUM 500 MG TAB) 500 Mg Tablet, 500 MG PO QID for 7 Days, #28 TAB Prov:VOLODYMYR LOZANO DO 01/24/18 Promethazine HCl/Codeine (Prometh-Codein 6.25-10 mg/5 ml) 5 Ml Syrup, 1 TSP PO QHS Y for COUGH, #120 ML Prov:YRN LAWRENCE PA-C 01/05/18 Levothyroxine Sodium (SYNTHROID) 112 Mcg Tablet, 1 TAB PO QDAY, #60 TAB 3 Refills Prov:CULLEN LESLIE MD 12/31/17 Ranitidine Hcl (RANITIDINE HCL) 300 Mg Tablet, 1 TAB PO QHS, #60 TAB 6 Refills Prov:CULLEN LESLIE MD 08/19/17 Oxygen (OXYGEN) Inha, 5 L INH QHS, #5 L With CPAP. Prov:ARIE HORTON MD 07/21/16 Reported Medications Oxygen (OXYGEN) Inha, 2-4 L INH, L day time use 09/04/17 Propranolol Hcl (PROPRANOLOL HCL) 10 Mg Tablet, 10 MG PO TID 08/28/17 Losartan Potassium (LOSARTAN POTASSIUM) 100 Mg Tablet, 100 MG PO QDAY 08/28/17 Fluticasone/Salmeterol (ADVAIR 250-50 DISKUS) 1 Each Disk.w.dev, 1 EACH IH 1-2XD 12/26/16 Citalopram Hydrobromide (CELEXA) 40 Mg Tablet, 40 MG PO QDAY, #5 TAB 0 Refills TAKE 1 TABLET BY MOUTH EVERY DAY 05/23/13 Simvastatin (SIMVASTATIN) 20 Mg Tablet, 40 MG PO HS, TAB 0 Refills 05/23/13 Pantoprazole Sodium (PANTOPRAZOLE SODIUM) 40 Mg Tablet.dr, 40 MG PO QDAY, TAB.SR 0 Refills 05/23/13 Albuterol/Ipratropium (Duoneb) 3 Ml Soln, 3 ML NEB BID, 0 Refills 05/26/12 Hx Smoking: Yes (SMOKES 1/2 TO 3/4 PPD FOR 44 YEARS. CHEWED TOBACCO FOR 1 YEAR) Smoking Status: Current: Every Day Smoker, Heavy Tobacco Smoker Exposure to Second Hand Smoke?: Yes Hx Substance Use Disorder: No Hx Alcohol Use: Yes Constitutional Physical Exam General Appearance: The patient is alert, has no immediate need for airway protection and no signs of toxicity. + mild distress secondary to pain Eyes: Pupils equal and round no pallor or injection. ENT, Mouth: Mucous membranes are moist, + poor dentition, left lower molar decay with mild surrounding gingival swelling Respiratory: There are no retractions, lungs are clear to auscultation. Neurological: No focal deficits Skin: Warm and dry, no rashes. Musculoskeletal: Neck is supple non tender. DIFFERENTIAL DIAGNOSIS: After history and physical exam differential diagnosis was considered for dental abscess, dental silvano, dental fracture Medical Decision Making ED Course/Re-evaluation ED Course Patient is a 57-year-old female here with complaints of dental pain of the left lower molars secondary to poor dentition and dental caries with suspected dental abscess. An inferior alveolar and local dental block was performed using bupivacaine for anesthetic. Patient was given Toradol for further analgesia. Patient was given tramadol tabs to go and started on penicillin for infection control. Patient was advised to follow-up with dentistry for definitive care. Patient was stable at time of discharge. Decision to Disposition Date: Jan 24, 2018 Decision to Disposition Time: 01:00 Depart Departure Latest Vital Signs Impression: Primary Impression: Pain, dental Condition: Improved Disposition: HOME OR SELF-CARE Referrals: BROOK TEJEDA DO (PCP) New Scripts Penicillin V Potassium 500 Mg Tab (PENICILLIN V POTASSIUM 500 MG TAB) 500 Mg Tablet 500 MG PO QID for 7 Days, #28 TAB Prov: VOLODYMYR LOZANO DO 01/24/18 Patient Instructions: Dental Caries (ED) Additional Instructions: Please follow up with dentistry for tooth extraction. You may take 500 mg of naproxen every 12 hours as needed for pain. Please take 1 tablet of penicillin 4 times a day for 7 days. Please return promptly if you develop worsening swelling, worsening pain, difficulty swallowing, blurred vision, headaches. VOLODYMYR LOZANO DO Jan 24, 2018 00:28
[2018-01-24] MEDS ORDERED: PENICILLIN VK 250 MG TAB PO SCH (00:50)
[2018-01-24] MEDS ORDERED: PENI-24 PO (00:51)
[2018-01-24] MEDS ORDERED: traMADol 50 MG TAB TH 2 TAB/BOTTLE PO ONE (00:55)
[2018-01-24] MEDS ORDERED: KETOROLAC 30 MG/ML VIAL IM ONE (00:55)
[2018-01-24 01:04] VITALS: BP 137/87
== END 2018-01-24 01:07 | disposition home or self-care (01) ==
LOC: ER 00:59
DX: K08.89 Other specified disorders of teeth and supporting structures (principal)
CPT/HCPCS: 64400; 96372; 99283; A9270; J1885; C9399

== ENCOUNTER → 2018-02-27 | Outpatient (CLI) | payer MEDICARE, MEDICAID ==
[2016-07-21 14:29] VITALS: BMI 43.2
[~2018-02-27] MED LIST changes: +PENI-24 PO
== END ==
LOC: LAB 14:07
PROVIDERS: ATTEND Family Medicine
DX: E03.9 Hypothyroidism, unspecified (principal); Z79.899 Other long term (current) drug therapy
CPT/HCPCS: 36415; 82310; 82374; 82435; 82565; 82947; 84132; 84295; 84443; 84520

== ENCOUNTER → 2018-03-07 | Outpatient (CLI) | payer MEDICARE, MEDICAID ==
[2016-07-21 14:29] VITALS: BMI 43.2
[~2018-03-07] MED LIST changes: -LOSA100T67 PO; +LOSA100T69 PO
== END ==
LOC: RESP 20:52
PROVIDERS: ATTEND Family Medicine
DX: G47.33 Obstructive sleep apnea (adult) (pediatric) (principal); G47.61 Periodic limb movement disorder; G47.36 Sleep related hypoventilation in conditions classified elsewhere

== ENCOUNTER 2018-04-03 18:35 | Emergency (ER) | payer MEDICARE, MEDICAID ==
[2016-07-21 14:29] VITALS: Wt 112.2 kg
[2018-04-03] MEDS ORDERED: BUPR-126 PO (18:53)
--- NOTE | 2018-04-03 18:55 | ER Report ---
History and Physical Time Seen By MD: 18:54 Hx. of Stated Complaint: HAND AND WRIST PAIN R SIDE AFTER WAKING UP, UNKNOWN IF INJUR, UNABLE TO USE HAND HPI/ROS CHIEF COMPLAINT: Right hand pain HISTORY OF PRESENT ILLNESS: 57-year-old female patient presents to emergency room with complaint of right hand pain. Patient states that she woke up this morning approximately 8:00 with hand pain. She states that she did not injure it. She states she did work yesterday, but does not recall hitting it on a counter anything. She denies having any numbness tingling. She states the pain is worse with any type of movement. She states she's unable to hold anything because of the pain. Patient states that she has not taken any medication for this. She states she's tried icing it throughout the day. States there is no improvement with that. REVIEW OF SYSTEMS: Respiratory: No cough, no dyspnea. Cardiovascular: No chest pain, no palpitations. Gastrointestinal: No vomiting, no abdominal pain. Musculoskeletal: As noted above Allergies: Coded Allergies: fluoxetine (Unverified Allergy, Intermediate, HIVES, 01/24/18) acetaminophen (Verified Allergy, Mild, NAUSEA/VOMITING, 01/24/18) codeine (Verified Allergy, Mild, NAUSEA/VOMITING, 01/24/18) shellfish derived (Unverified Allergy, Unknown, 01/24/18) Home Meds Active Scripts Levothyroxine Sodium (SYNTHROID) 112 Mcg Tablet, 1 TAB PO QDAY, #60 TAB 3 Refills Prov:CULLEN LESLIE MD 12/31/17 Oxygen (OXYGEN) Inha, 5 L INH QHS, #5 L With CPAP. Prov:ARIE HORTON MD 07/21/16 Reported Medications Bupropion Hcl (WELLBUTRIN SR) 150 Mg Tablet.er, 150 MG PO BID, TAB 04/03/18 Oxygen (OXYGEN) Inha, 2-4 L INH, L day time use 09/04/17 Propranolol Hcl (PROPRANOLOL HCL) 10 Mg Tablet, 10 MG PO TID 08/28/17 Losartan Potassium (LOSARTAN POTASSIUM) 100 Mg Tablet, 100 MG PO QDAY 08/28/17 Fluticasone/Salmeterol (ADVAIR 250-50 DISKUS) 1 Each Disk.w.dev, 1 EACH IH 1-2XD 12/26/16 Simvastatin (SIMVASTATIN) 20 Mg Tablet, 40 MG PO HS, TAB 0 Refills 05/23/13 Pantoprazole Sodium (PANTOPRAZOLE SODIUM) 40 Mg Tablet.dr, 40 MG PO QDAY, TAB.SR 0 Refills 05/23/13 Albuterol/Ipratropium (Duoneb) 3 Ml Soln, 3 ML NEB BID, 0 Refills 05/26/12 Discontinued Reported Medications Citalopram Hydrobromide (CELEXA) 40 Mg Tablet, 40 MG PO QDAY, #5 TAB 0 Refills TAKE 1 TABLET BY MOUTH EVERY DAY 05/23/13 Discontinued Scripts Penicillin V Potassium 500 Mg Tab (PENICILLIN V POTASSIUM 500 MG TAB) 500 Mg Tablet, 500 MG PO QID for 7 Days, #28 TAB Prov:VOLODYMYR LOZANO DO 01/24/18 Promethazine HCl/Codeine (Prometh-Codein 6.25-10 mg/5 ml) 5 Ml Syrup, 1 TSP PO QHS PRN for COUGH, #120 ML Prov:YRN LAWRENCE PA-C 01/05/18 Ranitidine Hcl (RANITIDINE HCL) 300 Mg Tablet, 1 TAB PO QHS, #60 TAB 6 Refills Prov:CULLEN LESLIE MD 08/19/17 Past Medical/Surgical History Patient has a past medical history of Parkinson's, migraines, angina, hyperlipidemia, oxygen, asthma, pneumonia, COPD, reflux, frequent UTI, tendinitis, arthritis, fractures, back pain, subconjunctival hemorrhage, hypothyroidism Hx Smoking: Yes (SMOKES 1/2 TO 3/4 PPD FOR 44 YEARS. CHEWED TOBACCO FOR 1 YEAR) Smoking Status: Current: Every Day Smoker, Heavy Tobacco Smoker Exposure to Second Hand Smoke?: Yes Hx Substance Use Disorder: No Hx Alcohol Use: Yes Constitutional Vital Sign - Last 24 Hours 04/03/18 04/03/18 04/03/18 04/03/18 18:44 18:46 18:50 19:05 Temp 97.9 Pulse 90 90 ??? Resp 18 B/P (MAP) 154/105 154/105 (121) Pulse Ox 90 94 O2 Delivery Nasal Cannula 04/03/18 04/03/18 04/03/18 04/03/18 19:20 19:35 19:50 20:05 Pulse 92 95 93 94 Pulse Ox 96 64 93 94 04/03/18 20:30 Pulse 95 Resp 18 B/P (MAP) 147/102 (117) Pulse Ox 93 O2 Delivery Nasal Cannula Physical Exam General appearance: Alert no distress. Respiratory: Chest is non tender, lungs are clear to auscultation. Cardiac: Regular rate and rhythm. Musculoskeletal: Patient does have tenderness to the right hand, right wrist. She hurts medially and laterally, there is no bruising or swelling. DIFFERENTIAL DIAGNOSIS: After history and physical exam differential diagnosis was considered for fracture contusion, arthritis. Medical Decision Making EKG/Imaging Imaging EXAMINATION: Right hand 3 views HISTORY: Hand pain. COMPARISON: 08/14/2017. FINDINGS: Bones of the right hand demonstrate normal alignment. No evidence of acute fracture or dislocation. Stable old healed fracture of the right fifth metacarpal shaft. There are mild degenerative changes at scattered IP joints of the right hand, greatest at the DIP joint of the right third finger with osteophyte formation. Soft tissues are radiographically unremarkable. IMPRESSION: No acute osseous findings in the right hand. Stable exam. Report Dictated By: David Shah MD at 04/03/2018 7:54 PM Report E-Signed By: David Shah MD at 04/03/2018 7:56 PM ED Course/Re-evaluation ED Course Patient is admitted and examined, history and physical were obtained. Differential diagnoses were considered. On examination lungs are clear, heart is regular. Patient has no deformity, she is tender throughout the right hand. X- ray was done which was negative. I discussed the findings with the patient. We did place the patient in a splint. Patient tolerated procedure well. We'll have her go ahead and limited activity by pain. She is to follow-up with her primary care provider in one week. She is return to emergency room if condition worsens. Patient verbalized understanding and agreement with plan. Procedure: Splint placement. A Colles' splint was applied. After application of the splint I returned and re-examined the patient. The splint was adequately immobilizing the joint and distal to the splint the patient's circulation and sensation was intact. Decision to Disposition Date: Apr 03, 2018 Decision to Disposition Time: 20:19 Depart Departure Latest Vital Signs Vital Signs Date Time Temp Pulse Resp B/P (MAP) Pulse Ox O2 Delivery O2 Flow Rate FiO2 04/03/18 20:30 95 18 147/102 (117) 93 Nasal Cannula 04/03/18 18:44 97.9 Impression: Primary Impression: Pain in right hand Condition: Improved Disposition: HOME OR SELF-CARE Referrals: BROOK TEJEDA DO (PCP) Patient Instructions: GENERAL ER DISCHARGE INSTRUCTIONS Additional Instructions: Limit activity by pain. Wear the splint all of the time except when showering. Get plenty of rest. You may take Tylenol as needed for pain. Follow up with your primary care provider in the next week. Return to the ER if condition worsens. MATT MARTINEZ Apr 03, 2018 18:55
--- NOTE | 2018-04-03 20:00 | RADIOLOGY IMAGING REPORT ---
FACILITY: [facility] PATIENT NAME: Jesús Major : 1960 MR: [id number] V: [id number] EXAM DATE: ORDERING PHYSICIAN: MATT MARTINEZ TECHNOLOGIST: Location: [facility] [place] Patient: Jesús Major : 1960 Visit/Account:[id number] Date of Sevice: 04/03/2018 EXAMINATION: Right hand 3 views HISTORY: Hand pain. COMPARISON: 08/14/2017. FINDINGS: Bones of the right hand demonstrate normal alignment. No evidence of acute fracture or dislocation. Stable old healed fracture of the right fifth metacarpal shaft. There are mild degenerative changes at scattered IP joints of the right hand, greatest at the DIP [place] of the right third finger with osteophyte formation. Soft tissues are radiographically unremarkable. IMPRESSION: No acute osseous findings in the right hand. Stable exam. Report Dictated By: David Shah MD at 04/03/2018 7:54 PM Report E-Signed By: David Shah MD at 04/03/2018 7:56 PM WSN:[id number]
[2018-04-03 20:30] VITALS: BP 147/102
== END 2018-04-03 20:31 | disposition home or self-care (01) ==
LOC: ER 18:38
DX: M79.641 Pain in right hand (principal)
CPT/HCPCS: 73130; 99283; L3763

== ENCOUNTER → 2018-04-11 | Outpatient (CLI) | payer MEDICARE, MEDICAID ==
[2016-07-21 14:29] VITALS: BMI 43.2
[~2018-04-11] MED LIST changes: +BUPR-126 PO
== END ==
LOC: RESP 20:57
PROVIDERS: ATTEND Family Medicine
DX: G47.33 Obstructive sleep apnea (adult) (pediatric) (principal); G47.36 Sleep related hypoventilation in conditions classified elsewhere

== ENCOUNTER 2018-05-20 09:00 | Outpatient (RCR) | payer MEDICARE, MEDICAID ==
[2016-07-21 14:29] VITALS: BMI 43.2
[~2018-05-20 09:00] MED LIST changes: -LOSA100T69 PO; +LOSA100T75 PO
[2018-05-23] MEDS ORDERED: AMOX-362 PO (22:50)
[2018-05-23] MEDS ORDERED: LOR5/325 PO (22:50)
== END 2018-07-21 ==
LOC: CARD 09:00
PROVIDERS: ATTEND Internal Medicine
DX: J44.9 Chronic obstructive pulmonary disease, unspecified (principal); F17.210 Nicotine dependence, cigarettes, uncomplicated
CPT/HCPCS: G0424 ×5

== ENCOUNTER 2018-05-23 22:28 | Emergency (ER) | payer MEDICARE, MEDICAID ==
[2016-07-21 14:29] VITALS: Wt 112.2 kg
[~2018-05-23 22:28] MED LIST changes: +LOSA100T69 PO; -LOSA100T75 PO
[2018-05-23 22:32] VITALS: BP 127/86
--- NOTE | 2018-05-23 22:42 | ER Report ---
History and Physical Time Seen By MD: 22:43 Hx. of Stated Complaint: BOTTOM LEFT MOLAR INFECTION. CAN'T AFFORD A DENTIST. WANTS TO KNOW IF IT'S INFECTED HPI/ROS CHIEF COMPLAINT: dental pain HISTORY OF PRESENT ILLNESS: This is a 57 year old female. She has lower left dental pain and a tooth that is loose and has some draining. Has been hurting for a few weeks. Cant afford to see a dentis. Some swelling in lower left face with this. No fever. Allergies: Coded Allergies: fluoxetine (Unverified Allergy, Intermediate, HIVES, 05/23/18) acetaminophen (Verified Allergy, Mild, NAUSEA/VOMITING, 05/23/18) codeine (Verified Allergy, Mild, NAUSEA/VOMITING, 05/23/18) shellfish derived (Unverified Allergy, Unknown, 05/23/18) Home Meds Active Scripts Hydrocodone Bit/Acetaminophen (HYDROCODON-ACETAMINOPHEN 5-325) 1 Each Tablet, 1 EACH PO Q4H PRN for PAIN, #12 TAB 0 Refills Prov:BRIANNE PANDEY MD 05/23/18 Amoxicillin (AMOXICILLIN) 500 Mg Capsule, 1 CAP PO Q8H, #30 CAPSULE 0 Refills Prov:BRIANNE PANDEY MD 05/23/18 Levothyroxine Sodium (SYNTHROID) 112 Mcg Tablet, 1 TAB PO QDAY, #60 TAB 3 Refills Prov:CULLEN LESLIE MD 12/31/17 Oxygen (OXYGEN) Inha, 5 L INH QHS, #5 L With CPAP. Prov:ARIE HORTON MD 07/21/16 Reported Medications Bupropion Hcl (WELLBUTRIN SR) 150 Mg Tablet.er, 150 MG PO BID, TAB 04/03/18 Oxygen (OXYGEN) Inha, 2-4 L INH, L day time use 09/04/17 Propranolol Hcl (PROPRANOLOL HCL) 10 Mg Tablet, 10 MG PO TID 08/28/17 Losartan Potassium (LOSARTAN POTASSIUM) 100 Mg Tablet, 100 MG PO QDAY 08/28/17 Fluticasone/Salmeterol (ADVAIR 250-50 DISKUS) 1 Each Disk.w.dev, 1 EACH IH 1-2XD 12/26/16 Simvastatin (SIMVASTATIN) 20 Mg Tablet, 40 MG PO HS, TAB 0 Refills 05/23/13 Pantoprazole Sodium (PANTOPRAZOLE SODIUM) 40 Mg Tablet.dr, 40 MG PO QDAY, TAB.SR 0 Refills 05/23/13 Albuterol/Ipratropium (Duoneb) 3 Ml Soln, 3 ML NEB BID, 0 Refills 05/26/12 Reviewed Nurses Notes: Yes Hx Smoking: Yes (SMOKES 1/2 TO 3/4 PPD FOR 44 YEARS. CHEWED TOBACCO FOR 1 YEAR) Smoking Status: Current: Every Day Smoker, Heavy Tobacco Smoker Exposure to Second Hand Smoke?: Yes Hx Substance Use Disorder: No Hx Alcohol Use: Yes Constitutional Vital Sign - Last 24 Hours 05/23/18 22:32 Temp 98.4 Pulse 99 Resp 18 B/P (MAP) 127/86 Pulse Ox 92 O2 Delivery Nasal Cannula Physical Exam General: Alert. ENT: Loose left lower 2nd molar. Redness of the gums. No evidence of abscess. Skin: Some swelling but no redness. Medical Decision Making ED Course/Re-evaluation ED Course Gave Amoxicillin and some Lortab. Discussed with patient that the tooth appears to need to come out, and would recommend seeing a dentist. Decision to Disposition Date: May 23, 2018 Decision to Disposition Time: 22:49 Depart Departure Latest Vital Signs Vital Signs Date Time Temp Pulse Resp B/P (MAP) Pulse Ox O2 Delivery O2 Flow Rate FiO2 05/23/18 22:32 98.4 99 18 127/86 92 Nasal Cannula Impression: Primary Impression: Pain, dental Condition: Improved Disposition: HOME OR SELF-CARE New Scripts Hydrocodone Bit/Acetaminophen (HYDROCODON-ACETAMINOPHEN 5-325) 1 Each Tablet 1 EACH PO Q4H PRN for PAIN, #12 TAB 0 Refills Prov: BRIANNE PANDEY MD 05/23/18 Amoxicillin (AMOXICILLIN) 500 Mg Capsule 1 CAP PO Q8H, #30 CAPSULE 0 Refills Prov: BRIANNE PANDEY MD 05/23/18 Patient Instructions: Dental Abscess (ED) Additional Instructions: Take Amoxicillin 500mg three times a day for 10 days. Take Lortab 5/325 one every 4 hours as needed for pain. Dental evaluation will be needed for definitive care. BRIANNE PANDEY MD May 23, 2018 22:42
[2018-05-23] MEDS ORDERED: AMOXICILLIN 500 MG CAP PO ONE (22:50)
[2018-05-23] MEDS ORDERED: LOR5/325 PO (22:50)
[2018-05-23] MEDS ORDERED: ACET/HYDROC 5/325MG TH ER ONLY 2 TAB/BOTTLE PO ONE (22:50)
[2018-05-23] MEDS ORDERED: AMOX-362 PO (22:50)
== END 2018-05-23 23:01 | disposition home or self-care (01) ==
LOC: ER 22:49
DX: K08.89 Other specified disorders of teeth and supporting structures (principal); F17.210 Nicotine dependence, cigarettes, uncomplicated
CPT/HCPCS: 99283; A9270

== ENCOUNTER 2018-09-03 14:21 | Emergency (ER) | payer MEDICARE, MEDICAID ==
[2016-07-21 14:29] VITALS: Wt 115.7 kg
[~2018-09-03 14:21] MED LIST changes: +AMOX-362 PO; -LOSA100T69 PO; +LOSA100T75 PO
[2018-09-03] MEDS ORDERED: NOR10 PO (14:28)
[2018-09-03] MEDS ORDERED: ALBUTEROL/IPRATROPIUM 3 ML NEB NEB ONE ×2 (14:35→15:05)
[2018-09-03] MEDS ORDERED: methylPREDNIS SUCC 125 MG/2ML IVP ONE (14:40)
--- NOTE | 2018-09-03 14:40 | ER Report ---
History and Physical Time Seen By MD: 14:35 Hx. of Stated Complaint: WORSENING SOB X 2 DAYS. HPI/ROS CHIEF COMPLAINT: Shortness of breath HISTORY OF PRESENT ILLNESS: 58-year-old female long history of COPD still currently smoking half pack a day comes emergency Department today difficulty breathing wheezing and expiratory wheezes noted normal at 2 L during the day and 4 at night and on her CPAP at night. Patient states she's reviewed. Additional oxygen and she's had a very productive thick and cough feels pleuritic chest discomfort when she is coughing says that she has been worsening or shortness of breath with exertion for the last 2-3 days she's had multiple episodes of COPD exacerbation several times requiring hospitalization. Patient has no chest pain at this time and has had pleurisy in the past patient has no abdominal pain nausea vomiting REVIEW OF SYSTEMS: Respiratory: Cough shortness of breath Cardiovascular: Pleuritic chest discomfort Gastrointestinal: No vomiting, no abdominal pain. Musculoskeletal: No back pain. Remainder of the 14 system rev: Yes Allergies: Coded Allergies: fluoxetine (Unverified Allergy, Intermediate, HIVES, 09/03/18) acetaminophen (Verified Allergy, Mild, NAUSEA/VOMITING, 09/03/18) codeine (Verified Allergy, Mild, NAUSEA/VOMITING, 09/03/18) shellfish derived (Unverified Allergy, Unknown, 09/03/18) Home Meds Active Scripts Levothyroxine Sodium (SYNTHROID) 112 Mcg Tablet, 1 TAB PO QDAY, #60 TAB 3 Refills Prov:CULLEN LESLIE MD 12/31/17 Oxygen (OXYGEN) Inha, 5 L INH QHS, #5 L With CPAP. Prov:ARIE HORTON MD 07/21/16 Reported Medications Nortriptyline Hcl (NORTRIPTYLINE HCL) 10 Mg Cap, 10 MG PO HS, CAP 09/03/18 Bupropion Hcl (WELLBUTRIN SR) 150 Mg Tablet.er, 150 MG PO BID, TAB 04/03/18 Oxygen (OXYGEN) Inha, 2-4 L INH, L day time use 09/04/17 Propranolol Hcl (PROPRANOLOL HCL) 10 Mg Tablet, 10 MG PO TID 08/28/17 Losartan Potassium (LOSARTAN POTASSIUM) 100 Mg Tablet, 100 MG PO QDAY 08/28/17 Fluticasone/Salmeterol (ADVAIR 250-50 DISKUS) 1 Each Disk.w.dev, 1 EACH IH 1-2XD 12/26/16 Simvastatin (SIMVASTATIN) 20 Mg Tablet, 40 MG PO HS, TAB 0 Refills 05/23/13 Pantoprazole Sodium (PANTOPRAZOLE SODIUM) 40 Mg Tablet.dr, 40 MG PO QDAY, TAB.SR 0 Refills 05/23/13 Albuterol/Ipratropium (Duoneb) 3 Ml Soln, 3 ML NEB BID, 0 Refills 05/26/12 Discontinued Scripts Hydrocodone Bit/Acetaminophen (HYDROCODON-ACETAMINOPHEN 5-325) 1 Each Tablet, 1 EACH PO Q4H PRN for PAIN, #12 TAB 0 Refills Prov:BRIANNE PANDEY MD 05/23/18 Amoxicillin (AMOXICILLIN) 500 Mg Capsule, 1 CAP PO Q8H, #30 CAPSULE 0 Refills Prov:BRIANNE PANDEY MD 05/23/18 Reviewed Nurses Notes: Yes Old Medical Records Reviewed: Yes Hx Smoking: Yes (SMOKES 1/2 TO 3/4 PPD FOR 44 YEARS. CHEWED TOBACCO FOR 1 YEAR) Smoking Status: Current: Every Day Smoker, Heavy Tobacco Smoker Exposure to Second Hand Smoke?: Yes Hx Substance Use Disorder: No Hx Alcohol Use: Yes Constitutional Vital Sign - Last 24 Hours 09/03/18 09/03/18 09/03/18 09/03/18 14:25 14:25 14:45 14:45 Temp 98.5 Pulse 94 86 Resp 24 18 B/P (MAP) 143/95 Pulse Ox 94 93 O2 Delivery Nasal Cannula Nasal Cannula O2 Flow Rate 2.0 3.0 09/03/18 09/03/18 09/03/18 14:52 15:32 15:32 Pulse 85 82 Resp 18 18 Pulse Ox 91 O2 Delivery Nasal Cannula O2 Flow Rate 2.0 Physical Exam General Appearance: The patient is alert, has no immediate need for airway protection and no current signs of toxicity. No apparent respiratory distress Eyes: Pupils equal and round no injection. Respiratory: Bilateral index patient or wheezes coarse breath sounds primarily in the bases right greater than left Cardiac: regular rate and rhythm [ ] Gastrointestinal: Abdomen is soft and non tender, no masses, bowel sounds normal. Musculoskeletal: Neck: Neck is supple and non tender. Extremities have full range of motion and are non tender. Skin: No rashes or lesions. [ ] DIFFERENTIAL DIAGNOSIS: After history and physical exam differential diagnosis was considered for COPD exacerbation pneumonia infiltrate bronchitis chronic bronchitis acute on chronic Medical Decision Making Data Points Result Diagram: 09/03/18 1430 09/03/18 1430 Laboratory Hematology Test 09/03/18 14:30 09/03/18 14:31 09/03/18 15:04 Red Blood Count 5.29 M/uL (4.17-5.56) Mean Corpuscular Volume 88.7 fL (80.0-96.0) Mean Corpuscular Hemoglobin 30.2 pg (26.0-33.0) Mean Corpuscular Hemoglobin Concent 34.0 g/dL (32.0-36.0) Red Cell Distribution Width 13.3 % (11.5-14.5) Mean Platelet Volume 8.5 fL (7.2-11.1) Neutrophils (%) (Auto) 56.6 % (39.4-72.5) Lymphocytes (%) (Auto) 31.5 % (17.6-49.6) Monocytes (%) (Auto) 8.9 % (4.1-12.4) Eosinophils (%) (Auto) 1.9 % (0.4-6.7) Basophils (%) (Auto) 1.1 % (0.3-1.4) Nucleated RBC Relative Count (auto) 0.1 /100WBC Neutrophils # (Auto) 3.7 K/uL (2.0-7.4) Lymphocytes # (Auto) 2.1 K/uL (1.3-3.6) Monocytes # (Auto) 0.6 K/uL (0.3-1.0) Eosinophils # (Auto) 0.1 K/uL (0.0-0.5) Basophils # (Auto) 0.1 K/uL (0.0-0.1) Nucleated RBC Absolute Count (auto) 0.01 K/uL D-Dimer Quantitative (PE/DVT) 0.28 ug/ml (0-0.50) Sodium Level 139 mmol/L (137-145) Potassium Level 5.0 mmol/L (3.5-5.0) Chloride Level 103 mmol/L (98-107) Carbon Dioxide Level 28 mmol/L (22-31) Blood Urea Nitrogen 17 mg/dl (7-18) Creatinine 1.20 mg/dl (0.52-1.04) Glomerular Filtration Rate Calc 46.0 Random Glucose 117 mg/dl (75-110) Calcium Level 9.4 mg/dl (8.4-10.2) Total Bilirubin 1.0 mg/dl (0.2-1.3) Aspartate Amino Transf (AST/SGOT) 56 U/L (0-35) Alanine Aminotransferase (ALT/SGPT) 81 U/L (0-56) Alkaline Phosphatase 93 U/L (0-126) Troponin I < 0.012 ng/ml B-Type Natriuretic Peptide < 5 pg/ml (0-100) Total Protein 7.1 g/dl (6.3-8.2) Albumin 4.4 g/dl (3.5-5.0) Influenza Virus Type A (PCR) Negative (NEGATIVE) Influenza Virus Type B (PCR) Negative (NEGATIVE) Blood Gas Puncture Site Right radial Blood Gas Patient Temperature 98.5 DEGREES Arterial Blood pH 7.38 (7.35-7.45) Arterial Blood Partial Pressure CO2 40 mmHg (32-37) Arterial Blood Partial Pressure O2 78 mmHg (60-80) Arterial Blood HCO3 24 mmol/L (20-26) Arterial Blood Oxygen Saturation 95 % (92-100) Arterial Blood Base Excess -2.0 mmol/L Pepe Test Acceptable Oxygen Liters/Minute 29 Chemistry Test 09/03/18 14:30 09/03/18 14:31 09/03/18 15:04 White Blood Count 6.6 k/uL (4.5-11.0) Red Blood Count 5.29 M/uL (4.17-5.56) Hemoglobin 16.0 g/dL (12.0-16.0) Hematocrit 46.9 % (34.0-47.0) Mean Corpuscular Volume 88.7 fL (80.0-96.0) Mean Corpuscular Hemoglobin 30.2 pg (26.0-33.0) Mean Corpuscular Hemoglobin Concent 34.0 g/dL (32.0-36.0) Red Cell Distribution Width 13.3 % (11.5-14.5) Platelet Count 195 K/uL (150-450) Mean Platelet Volume 8.5 fL (7.2-11.1) Neutrophils (%) (Auto) 56.6 % (39.4-72.5) Lymphocytes (%) (Auto) 31.5 % (17.6-49.6) Monocytes (%) (Auto) 8.9 % (4.1-12.4) Eosinophils (%) (Auto) 1.9 % (0.4-6.7) Basophils (%) (Auto) 1.1 % (0.3-1.4) Nucleated RBC Relative Count (auto) 0.1 /100WBC Neutrophils # (Auto) 3.7 K/uL (2.0-7.4) Lymphocytes # (Auto) 2.1 K/uL (1.3-3.6) Monocytes # (Auto) 0.6 K/uL (0.3-1.0) Eosinophils # (Auto) 0.1 K/uL (0.0-0.5) Basophils # (Auto) 0.1 K/uL (0.0-0.1) Nucleated RBC Absolute Count (auto) 0.01 K/uL D-Dimer Quantitative (PE/DVT) 0.28 ug/ml (0-0.50) Glomerular Filtration Rate Calc 46.0 Calcium Level 9.4 mg/dl (8.4-10.2) Total Bilirubin 1.0 mg/dl (0.2-1.3) Aspartate Amino Transf (AST/SGOT) 56 U/L (0-35) Alanine Aminotransferase (ALT/SGPT) 81 U/L (0-56) Alkaline Phosphatase 93 U/L (0-126) Troponin I < 0.012 ng/ml B-Type Natriuretic Peptide < 5 pg/ml (0-100) Total Protein 7.1 g/dl (6.3-8.2) Albumin 4.4 g/dl (3.5-5.0) Influenza Virus Type A (PCR) Negative (NEGATIVE) Influenza Virus Type B (PCR) Negative (NEGATIVE) Blood Gas Puncture Site Right radial Blood Gas Patient Temperature 98.5 DEGREES Arterial Blood pH 7.38 (7.35-7.45) Arterial Blood Partial Pressure CO2 40 mmHg (32-37) Arterial Blood Partial Pressure O2 78 mmHg (60-80) Arterial Blood HCO3 24 mmol/L (20-26) Arterial Blood Oxygen Saturation 95 % (92-100) Arterial Blood Base Excess -2.0 mmol/L Pepe Test Acceptable Oxygen Liters/Minute 29 Coagulation Test 09/03/18 14:30 D-Dimer Quantitative (PE/DVT) 0.28 ug/ml ED Course/Re-evaluation ED Course ED clinical course medical decision making 58-year-old female history of COPD he has multiple sick exacerbations acute emergency department today with some end expiratory wheezing since some crackles in the bibasilar areas patient's workup is essentially negative her ABG showed a little to no alterations from baseline chest x-ray showed no obvious infiltrates received 2.3 mg DuoNeb treatment she feels significantly better Bladimir Yap and draws while she's requesting to go home with prednisone and follow-up with primary care think she is safe she still had a little bit of wheezing but she is able to do no treatment at home supplemental oxygen with her CPAP Decision to Disposition Date: Sep 03, 2018 Decision to Disposition Time: 15:55 Depart Departure Latest Vital Signs Vital Signs Date Time Temp Pulse Resp B/P (MAP) Pulse Ox O2 Delivery O2 Flow Rate FiO2 09/03/18 15:32 91 Nasal Cannula 2.0 09/03/18 15:32 82 18 09/03/18 14:25 98.5 143/95 Impression: Primary Impression: COPD with exacerbation Condition: Improved Disposition: HOME OR SELF-CARE Referrals: ALISHA LAWRENCE MD 5 Days New Scripts Prednisone (PREDNISONE) 20 Mg Tablet 60 MG PO QDAY, #12 0 Refills Prov: GIACOMO SY MD 09/03/18 Patient Instructions: COPD (Chronic Obstructive Pulmonary Disease) (DC) GIACOMO SY MD Sep 03, 2018 14:40
[2018-09-03 14:45] LABS: PLATELET COUNT, AUTOMATED 195 K/uL (150-450)
--- NOTE | 2018-09-03 15:25 | EKG ---
FACILITY: [facility] - [place] PATIENT NAME: LUIS CARLOS YAÑEZ : [id number] MR: [id number] V: [id number] EXAM DATE: ORDERING PHYSICIAN: GIACOMO SY TECHNOLOGIST: BROOKE Love Reason : RESPIRATORY Blood Pressure : / mmHG Vent. Rate : 083 BPM Atrial Rate : 083 BPM P-R Int : 186 ms QRS Dur : 074 ms QT Int : 358 ms P-R-T Axes : 055 061 072 degrees QTc Int : 420 ms Sinus rhythm Possible left atrial enlargement Poor R wave progression anteriorly Nonspecific ST findings Confirmed by JACQUIE HORTON ([id number]) on 09/03/2018 9:40:35 PM Referred By: Confirmed By:JACQUIE HORTON
[2018-09-03 15:30] VITALS: BP 114/80
--- NOTE | 2018-09-03 15:37 | RADIOLOGY IMAGING REPORT ---
[facility] PATIENT NAME: Jesús Major : 1960 MR: [id number] V: [id number] EXAM DATE: ORDERING PHYSICIAN: GIACOMO SY TECHNOLOGIST: Location: [facility] [place] Patient: Jesús Major : 1960 Visit/Account:[id number] Date of Sevice: 09/03/2018 Study: Frontal and lateral views of the chest Indication: Shortness of breath, right-sided chest pain, history of COPD Comparison study: January 05, 2018 Findings: PA and lateral views of the chest demonstrate no evidence of acute infiltrate. The patient is status post left apical lung surgery. The appearance of the surgical clips and suture lines is unchanged. There is no evidence of pleural effusion. There is no evidence of pneumothorax. The mediastinal, cardiac, and diaphragmatic contours are unremarkable. The visualized bony structures are unremarkable. IMPRESSION: No acute cardiopulmonary abnormality identified. Report Dictated By: Mart Talamantes at 09/03/2018 3:31 PM Report E-Signed By: Mart Talamantes at 09/03/2018 3:32 PM WSN:[id number]
[2018-09-03] MEDS ORDERED: PRED20TA6 PO (15:56)
== END 2018-09-03 16:05 | disposition home or self-care (01) ==
LOC: ER 14:37
DX: J44.1 Chronic obstructive pulmonary disease with (acute) exacerbation (principal); F17.200 Nicotine dependence, unspecified, uncomplicated
CPT/HCPCS: 36600; 71046; 82803; 83880; 84484; 85025; 85379; 87502; 93005; 94640; 96374; 99284; J2930; J7620; 82040; 82247; 82310; 82374; 82435; 82565; 82947; 84075; 84132; 84155; 84295; 84450; 84460; 84520

== ENCOUNTER 2018-11-03 14:47 | Emergency (ER) | payer MEDICARE, MEDICAID ==
[2016-07-21 14:29] VITALS: Wt 115.8 kg
[~2018-11-03 14:47] MED LIST changes: +NOR10 PO
[2018-11-03] MEDS ORDERED: NS(*) 0.9% 1000 ML BAG 1,000 ML IV ONE (16:45)
[2018-11-03 17:15] LABS: PLATELET COUNT, AUTOMATED 213 K/uL (150-450)
[2018-11-03] MEDS ORDERED: methylPREDNIS SUCC 125 MG/2ML IVP ONE (17:35)
[2018-11-03] MEDS ORDERED: ACETAMINOPHEN 500 MG TAB PO ONE (17:40)
[2018-11-03] MEDS ORDERED: PRED20TA6 PO (17:47)
--- NOTE | 2018-11-03 17:48 | ER Report ---
History and Physical Time Seen By MD: 15:05 Hx. of Stated Complaint: INCREASED SOB, RIGHT INDEX FINGER PAIN AND SWELLING. HPI/ROS CHIEF COMPLAINT: Shortness of breath and cough HISTORY OF PRESENT ILLNESS: This is a 58-year-old female presents to emergency department for a semi-productive cough and shortness breath. Patient states that over the last 3 days she's had increased shortness of breath and coughing. She's been using her DuoNeb's at home with little relief. The sitter come in for an evaluation. Patient has audible wheezing. She states she's had some chills no nausea or vomiting. No chest pain. No other complaints. She is speaking in full sentences. She is also complaining of right index finger pain. No injury, mild swelling no erythema or cellulitis. REVIEW OF SYSTEMS: Constitutional: No fever, no chills. Eyes: No discharge. ENT: No sore throat. Cardiovascular: No chest pain, no palpitations. Respiratory: As above. Gastrointestinal: No abdominal pain, no vomiting. Genitourinary: No hematuria. Musculoskeletal: No back pain. Skin: No rashes. Neurological: No headache. Allergies: Coded Allergies: fluoxetine (Unverified Allergy, Intermediate, HIVES, 09/03/18) acetaminophen (Verified Allergy, Mild, NAUSEA/VOMITING, 09/03/18) codeine (Verified Allergy, Mild, NAUSEA/VOMITING, 09/03/18) shellfish derived (Unverified Allergy, Unknown, 09/03/18) Home Meds Active Scripts Benzonatate (BENZONATATE) 200 Mg Capsule, 200 MG PO TID PRN for COUGH, #15 CAP Prov:TOM GARDNERP- 11/03/18 Prednisone (PREDNISONE) 20 Mg Tablet, 40 MG PO QDAY, #17 TAB 40mg once a day for 4 days. 30mg once a day for 3 days. 20mg once a day for 3 days. 10mg once a day for 2 days. Prov:TOM GARDNERP-BC 11/03/18 Prednisone (PREDNISONE) 20 Mg Tablet, 60 MG PO QDAY, #12 0 Refills Prov:GIACOMO SY MD 09/03/18 Levothyroxine Sodium (SYNTHROID) 112 Mcg Tablet, 1 TAB PO QDAY, #60 TAB 3 Refills Prov:CULLEN LESLIE MD 12/31/17 Oxygen (OXYGEN) Inha, 5 L INH QHS, #5 L With CPAP. Prov:ARIE HORTON MD 07/21/16 Reported Medications Nortriptyline Hcl (NORTRIPTYLINE HCL) 10 Mg Cap, 10 MG PO HS, CAP 09/03/18 Bupropion Hcl (WELLBUTRIN SR) 150 Mg Tablet.er, 150 MG PO BID, TAB 04/03/18 Oxygen (OXYGEN) Inha, 2-4 L INH, L day time use 09/04/17 Propranolol Hcl (PROPRANOLOL HCL) 10 Mg Tablet, 10 MG PO TID 08/28/17 Losartan Potassium (LOSARTAN POTASSIUM) 100 Mg Tablet, 100 MG PO QDAY 08/28/17 Fluticasone/Salmeterol (ADVAIR 250-50 DISKUS) 1 Each Disk.w.dev, 1 EACH IH 1-2XD 12/26/16 Simvastatin (SIMVASTATIN) 20 Mg Tablet, 40 MG PO HS, TAB 0 Refills 05/23/13 Pantoprazole Sodium (PANTOPRAZOLE SODIUM) 40 Mg Tablet.dr, 40 MG PO QDAY, TAB.SR 0 Refills 05/23/13 Albuterol/Ipratropium (Duoneb) 3 Ml Soln, 3 ML NEB BID, 0 Refills 05/26/12 Past Medical/Surgical History The patient has a past medical and surgical history of Parkinson's, headaches, "asystole during EGD", angina not cardiac related", hypercholesterolemia, uses continuous oxygen, asthma, "40% lung function", and pulmonary rehabilitation, COPD, GERD, urinary tract infections, bilateral salpingo-oophorectomy. Arthritis, tendinitis, rotator cuff injury, chronic back pain, some conjunctival hemorrhage, wears glasses, hypothyroidism, depression, colonoscopy, tubal ligation. Reviewed Nurses Notes: Yes Hx Smoking: Yes (SMOKES 1/2 TO 3/4 PPD FOR 44 YEARS. CHEWED TOBACCO FOR 1 YEAR) Smoking Status: Current: Every Day Smoker, Heavy Tobacco Smoker Exposure to Second Hand Smoke?: Yes Hx Substance Use Disorder: No Hx Alcohol Use: Yes Constitutional Vital Sign - Last 24 Hours 11/03/18 11/03/18 11/03/18 14:47 15:30 15:30 Temp 97.7 Pulse 103 80 Resp 20 18 B/P (MAP) 159/102 Pulse Ox 92 96 O2 Delivery Nasal Cannula Nasal Cannula O2 Flow Rate 2.0 Physical Exam General Appearance: The patient is alert, has no immediate need for airway protection and no signs of toxicity. Eyes: Pupils equal and round no pallor or injection. ENT, Mouth: Mucous membranes are dry. Respiratory: Diminished lung sounds throughout, end expiratory wheezes in upper lobes. Cardiovascular: Regular rate and rhythm. No murmurs, clicks or rubs. Gastrointestinal: Abdomen is soft and non tender, no masses, bowel sounds normal. Neurological: Alert and oriented 4. Moving all extremities. Following all commands. No focal neurodeficits. Skin: Warm and dry, no rashes. Musculoskeletal: Neck is supple non tender. Extremities right index finger with mild inflammation, no obvious deformities, no erythema or cellulitic appearance. No crepitus or shortening. DIFFERENTIAL DIAGNOSIS: After history and physical exam differential diagnosis was considered for shortness of breath including but not limited to pulmonary infectious process, COPD, asthma, pulmonary embolus and congestive heart failure. Medical Decision Making Data Points Result Diagram: 11/03/18 0000 11/03/18 0000 Laboratory Hematology Test 11/03/18 00:00 Red Blood Count 5.17 M/uL (4.17-5.56) Mean Corpuscular Volume 88.7 fL (80.0-96.0) Mean Corpuscular Hemoglobin 29.8 pg (26.0-33.0) Mean Corpuscular Hemoglobin Concent 33.7 g/dL (32.0-36.0) Red Cell Distribution Width 13.3 % (11.5-14.5) Mean Platelet Volume 9.1 fL (7.2-11.1) Neutrophils (%) (Auto) 55.6 % (39.4-72.5) Lymphocytes (%) (Auto) 34.1 % (17.6-49.6) Monocytes (%) (Auto) 6.8 % (4.1-12.4) Eosinophils (%) (Auto) 2.2 % (0.4-6.7) Basophils (%) (Auto) 1.3 % (0.3-1.4) Nucleated RBC Relative Count (auto) 0.1 /100WBC Neutrophils # (Auto) 3.6 K/uL (2.0-7.4) Lymphocytes # (Auto) 2.2 K/uL (1.3-3.6) Monocytes # (Auto) 0.4 K/uL (0.3-1.0) Eosinophils # (Auto) 0.1 K/uL (0.0-0.5) Basophils # (Auto) 0.1 K/uL (0.0-0.1) Nucleated RBC Absolute Count (auto) 0.01 K/uL Sodium Level 136 mmol/L (137-145) Potassium Level 4.4 mmol/L (3.5-5.0) Chloride Level 105 mmol/L (98-107) Carbon Dioxide Level 20 mmol/L (22-31) Blood Urea Nitrogen 12 mg/dl (7-18) Creatinine 0.70 mg/dl (0.52-1.04) Glomerular Filtration Rate Calc > 60.0 Random Glucose 199 mg/dl (75-110) Calcium Level 9.1 mg/dl (8.4-10.2) Total Bilirubin 0.8 mg/dl (0.2-1.3) Aspartate Amino Transf (AST/SGOT) 50 U/L (0-35) Alanine Aminotransferase (ALT/SGPT) 65 U/L (0-56) Alkaline Phosphatase 93 U/L (0-126) B-Type Natriuretic Peptide 7 pg/ml (0-100) Total Protein 6.8 g/dl (6.3-8.2) Albumin 4.2 g/dl (3.5-5.0) Chemistry Test 11/03/18 00:00 White Blood Count 6.4 k/uL (4.5-11.0) Red Blood Count 5.17 M/uL (4.17-5.56) Hemoglobin 15.4 g/dL (12.0-16.0) Hematocrit 45.9 % (34.0-47.0) Mean Corpuscular Volume 88.7 fL (80.0-96.0) Mean Corpuscular Hemoglobin 29.8 pg (26.0-33.0) Mean Corpuscular Hemoglobin Concent 33.7 g/dL (32.0-36.0) Red Cell Distribution Width 13.3 % (11.5-14.5) Platelet Count 213 K/uL (150-450) Mean Platelet Volume 9.1 fL (7.2-11.1) Neutrophils (%) (Auto) 55.6 % (39.4-72.5) Lymphocytes (%) (Auto) 34.1 % (17.6-49.6) Monocytes (%) (Auto) 6.8 % (4.1-12.4) Eosinophils (%) (Auto) 2.2 % (0.4-6.7) Basophils (%) (Auto) 1.3 % (0.3-1.4) Nucleated RBC Relative Count (auto) 0.1 /100WBC Neutrophils # (Auto) 3.6 K/uL (2.0-7.4) Lymphocytes # (Auto) 2.2 K/uL (1.3-3.6) Monocytes # (Auto) 0.4 K/uL (0.3-1.0) Eosinophils # (Auto) 0.1 K/uL (0.0-0.5) Basophils # (Auto) 0.1 K/uL (0.0-0.1) Nucleated RBC Absolute Count (auto) 0.01 K/uL Glomerular Filtration Rate Calc > 60.0 Calcium Level 9.1 mg/dl (8.4-10.2) Total Bilirubin 0.8 mg/dl (0.2-1.3) Aspartate Amino Transf (AST/SGOT) 50 U/L (0-35) Alanine Aminotransferase (ALT/SGPT) 65 U/L (0-56) Alkaline Phosphatase 93 U/L (0-126) B-Type Natriuretic Peptide 7 pg/ml (0-100) Total Protein 6.8 g/dl (6.3-8.2) Albumin 4.2 g/dl (3.5-5.0) EKG/Imaging Imaging PATIENT NAME: Jesús Major : 1960 MR: [id number] V: [id number] EXAM DATE: ORDERING PHYSICIAN: TOM GARDNER TECHNOLOGIST: Location: [facility] Patient: Jesús Major : 1960 Visit/Account:[id number] Date of Sevice: 11/03/2018 4 views right hand Indication: Swelling of the right hand. Comparison: None Available. Findings: No evidence of fracture, dislocation, or acute osseous abnormality of the right hand. There is no focal soft tissue abnormality. No evidence of radiopaque foreign body. IV line noted projecting over the fifth metacarpal. Impression: 1.No acute osseous abnormality of the right hand Report Dictated By: Kelton Corral MD at 11/03/2018 6:41 PM Report E-Signed By: Kelton Corral MD at 11/03/2018 6:43 PM [id number] PATIENT NAME: Jesús Major : 1960 MR: [id number] V: [id number] EXAM DATE: ORDERING PHYSICIAN: TOM GARDNER TECHNOLOGIST: Location: [facility] Patient: Jesús Major : 1960 Visit/Account:[id number] Date of Sevice: 11/03/2018 2 VIEWS CHEST INDICATION: Shortness of breath. COMPARISON: September 03, 2018. FINDINGS: Heart size within normal limits. There is no focal infiltrate or lobar consolidation. Surgical clips and suture line project over the left upper lung. Nonspecific hyperdensity projecting over the right lung base measuring 19 x 14 mm, not visualized on the lateral view or the prior radiograph. This may be overlying the patient.. There is no pneumothorax or pleural effusion. IMPRESSION: 1. No acute cardiopulmonary process. 2. Nonspecific hyperdensity projecting over the right lung base measuring up to 1.9 cm, not seen on the lateral view or the prior radiograph. This may be overlying the patient. Report Dictated By: Kelton Corral MD at 11/03/2018 6:38 PM Report E-Signed By: Kelton Corral MD at 11/03/2018 6:41 PM WSN:[id number] ED Course/Re-evaluation Clinical Indication for ER IV: Hydration, IV Access ED Course The patient was admitted to a room. A history and physical were obtained. Differential diagnoses were considered. An IV was started. A CBC, CMP were obtained. A 1 L normal saline bolus was given. A 1 hour long DuoNeb was given, patient tolerated very well, significant improvement in aeration and symptoms. Two-view chest x-ray negative for any acute cardiopulmonary process. Right hand x-ray showing no acute osseous abnormalities, no fractures. Patient was given 125 mg IV Solu-Medrol. 1 g of Tylenol. She was also given a prescription for a 10 day tapering dose of prednisone, and benzonatate. Patient will follow-up with her primary care provider, return to ER for any concerns or worsening symptoms. Patient was agreeable with this plan of care and discharged home. Decision to Disposition Date: November 03, 2018 Decision to Disposition Time: 18:26 Depart Departure Latest Vital Signs Vital Signs Date Time Temp Pulse Resp B/P (MAP) Pulse Ox O2 Delivery O2 Flow Rate FiO2 11/03/18 15:30 80 18 11/03/18 15:30 96 Nasal Cannula 2.0 11/03/18 14:47 97.7 159/102 Impression: Primary Impression: COPD with exacerbation Condition: Improved Disposition: HOME OR SELF-CARE Referrals: SAMUEL [facility] (PCP) 1 Week New Scripts Benzonatate (BENZONATATE) 200 Mg Capsule 200 MG PO TID PRN for COUGH, #15 CAP Prov: TOM GARDNER-LILA 11/03/18 Prednisone (PREDNISONE) 20 Mg Tablet 40 MG PO QDAY, #17 TAB 40mg once a day for 4 days. 30mg once a day for 3 days. 20mg once a day for 3 days. 10mg once a day for 2 days. Prov: TOM GARDNER-LILA 11/03/18 Patient Instructions: COPD (Chronic Obstructive Pulmonary Disease) (ED) Additional Instructions: Please continue using your duo nebs as needed. Take the prednisone for 10 days. Please follow-up with your primary care provider within one week for reevaluation. Be sure to drink plenty of fluids. Get plenty of rest. Continue monitoring the right index finger, I do not see any sign of infection however follow-up with your primary care provider or return to the ER if you have any other concerns. TOM GARDNER-LILA November 03, 2018 17:48
[2018-11-03 18:24] VITALS: BP 152/93
[2018-11-03] MEDS ORDERED: BENZ200C15 PO (18:44)
--- NOTE | 2018-11-03 18:45 | RADIOLOGY IMAGING REPORT ---
FACILITY: [facility] [place] PATIENT NAME: Jesús Major : 1960 MR: [id number] V: [id number] EXAM DATE: ORDERING PHYSICIAN: TOM GARDNER TECHNOLOGIST: Location: [facility] Patient: Jesús Major : 1960 Visit/Account:[id number] Date of Sevice: 11/03/2018 2 VIEWS CHEST INDICATION: Shortness of breath. COMPARISON: September 03, 2018. FINDINGS: Heart size within normal limits. There is no focal infiltrate or lobar consolidation. Surgical clips and suture line project over th e left upper lung. Nonspecific hyperdensity projecting over the right lung base measuring 19 x 14 mm , not visualized on the lateral view or the prior radiograph. This may be overlying the patient.. There is no pneumothorax or pleural effusion. IMPRESSION: 1. No acute cardiopulmonary process. 2. Nonspecific hyperdensity projecting over the right lung base measuring up to 1.9 cm, not seen on the lateral view or the prior radiograph. This may be overlying the patient. Report Dictated By: Kelton Corral MD at 11/03/2018 6:38 PM Report E-Signed By: Kelton Corral MD at 11/03/2018 6:41 PM WSN:[id number]
--- NOTE | 2018-11-03 18:47 | RADIOLOGY IMAGING REPORT ---
FACILITY: [facility] PATIENT NAME: Jesús Major : 1960 MR: [id number] V: [id number] EXAM DATE: ORDERING PHYSICIAN: TOM GARDNER TECHNOLOGIST: [place] [facility] [place]s [place] : 1960 Visit/Account:[id number] Date of Sevice: 11/03/2018 4 views right hand Indication: Swelling of the right hand. Comparison: None Available. Findings: No evidence of fracture, dislocation, or acute osseous abnormality of the right hand. There is no focal soft tissue abnormality. No evidence of radiopaque foreign body. IV line noted projecting over the fifth metacarpal. Impression: 1.No acute osseous abnormality of the right hand Report Dictated By: Kelton Corral MD at 11/03/2018 6:41 PM Report E-Signed By: Kelton Corral MD at 11/03/2018 6:43 PM [id number]
[2018-11-04] MEDS ORDERED: ALBUTEROL 2.5 MG/0.5ML ER ONLY NEB ONE (06:25)
[2018-11-04] MEDS ORDERED: LEVO125T77 PO (06:26)
== END 2018-11-03 18:43 | disposition home or self-care (01) ==
LOC: ER 14:47
DX: J44.1 Chronic obstructive pulmonary disease with (acute) exacerbation (principal)
CPT/HCPCS: 71046; 73130; 83880; 85025; 94644; 96361; 96374; 99284; A9270; J2930; J7030; J7611; 82040; 82247; 82310; 82374; 82435; 82565; 82947; 84075; 84132; 84155; 84295; 84450; 84460; 84520; 96375

== ENCOUNTER → 2018-11-10 | Outpatient (CLI) | payer MEDICARE, MEDICAID ==
[2016-07-21 14:29] VITALS: BMI 43.2
[~2018-11-10] MED LIST changes: +BENZ200C15 PO; +LEVO125T77 PO
[2018-11-10 10:04] LABS: PLATELET COUNT, AUTOMATED 218 K/uL (150-450)
== END ==
LOC: LAB 09:47
PROVIDERS: ATTEND Nurse Practitioner Family
DX: M79.641 Pain in right hand (principal); I10 Essential (primary) hypertension; E03.9 Hypothyroidism, unspecified; Z72.0 Tobacco use; E78.5 Hyperlipidemia, unspecified; F32.9 Major depressive disorder, single episode, unspecified; J44.9 Chronic obstructive pulmonary disease, unspecified; J45.909 Unspecified asthma, uncomplicated
CPT/HCPCS: 36415; 82465; 83718; 84478; 84550; 85025